=== PATIENT | female | born 1960 | race Caucasian/White ===

== ENCOUNTER 2024-12-05 09:45 | Outpatient (CLI) | payer MEDICARE, SELFPAY ==
--- OUTSIDE RECORDS SUMMARY | 2024-12-05 11:01 | XMS_ITS | Data Portability ---
Author Organization [place] [facility], Main Office Address [address] [place] [address] Assessment Encounter Date Assessment Date Assessment LastModified by Organization Details LastModified Time 10/28/2022 10/28/2022 Patient presents hip pain right. Part of the pain is trochanteric however think a lot of it is in the groin. Her x-rays appear to show potentially avascular necrosis on the lateral view she seems to have some collapse of the femoral head. I think we need to get an MRI scan to evaluate this. She clearly has trochanteric bursitis as well. I injected this with 20 mg Kenalog 4 cc 1% lidocaine. For prescription drug management will try prednisone taper this was done with for pain and inflammation. I will see her back after the MRI is done and reassess if she has any changes or problems in the interim she will call discussed. [email or web address] Not available 10/28/2022 11:22:25 11/02/2022 11/02/2022 Patient returns hip pain right. She returns with an MRI scan basically shows degenerative changes is not showing avascular necrosis. I reviewed the pictures and report with the patient and detail at this point I do not think hip replacement is in need she has gotten some relief from the injection as well as the as steroid pills recommend she continue with the conservative treatment. If the pain recurs she can take another course prednisone for prescription drug I will see her back on an as-needed basis. Not available 11/02/2022 14:07:25 Plan of Treatment Reminders Order Date Submit Date Provider Last Modified By Organization Details Last Modified Time Details Appointments None recorded. Lab None recorded. Referral None recorded. Procedures injection/a spiration joint/bursa (PROC) 2022 023 [email or web address] Not available 11:12:58 Surgeries None recorded. Imaging MRI, hip, w/o contrast [address] [facility], [address], [place], [address], 3 10:27:41 Medication Orders bupivacaine HCl 0.5 % (5 mg/mL) injection solution [address] [facility][id number], [facility], [id number], 3 11:19:15 Kenalog 10 mg/mL suspension for injection [address] [facility] #[id number], [facility] [address], [id number], 3 11:19:15 prednisone 10 mg tablets in a dose pack [address] [facility] #[id number], [facility] [address], [id number], 3 11:19:15 Patient TargetsNo targets recorded. Patient InstructionsNo instructions recorded. Reason for Referral None Reported. Results Created Date Observation Date Name Description Value Unit Range Abnormal Flag Note LastModifiedBy Organization Detail LastModifiedTime 10/29/1908/19/2022 XR, hip + pelvi s, unila teral , 2 or 3 view No observ ation record ed. [email or web address] Not Available 2022 10:27:52 10/29/19 MRI hip RT wo [facility] [address] [place] [address] [phone] Patien t Name: CARYN FIGUEREDO ion #: [id number] Sex: F : 1959 5 Locati on: IND Attend ing Physic kiera: Josefina rodriguez Physic kiera: LEON JOEL Exam Date: 10/29/19 10:19 AM Exam Name: MRI HIP RT WO Admitt ing Diagno sis(es ): RADIOL OGY REPORT - FINAL EXAM: MRI HIP RT WO HISTOR Y: pain' 62-yea r-old female with right hip pain for months , no known injury . COMPAR VALARIE: Lesa fan dated 2021. TECHNI QUE: Multip lanar multis equenc e noncon trast MR images of the right hip were perfor med. FINDIN GS: No eviden ce of fractu re or bone marrow edema about the hips or visual ized pelvis . No eviden ce of labral tear. There are small right hip margin al osteop hytes and anteri or acetab ular subcor tical cystic change s. No signif icant degene rative change s of the left hip. No eviden ce of femora l head AVN. There are trace bilate ral hip effusi ons, likely physio logic. Page 1 of 2 [facility] Patien t Name: CARYN FIGUEREDO Access ion #: [id number] Sex: F : 1959 5 Exam Date: 10/29/19 10:19 AM Exam Name: MRI HIP RT WO Admitt ing Diagno sis(es ): There is fluid signal adjace nt to the bilate ral greate r trocha nters. There is atroph y of the bilate ral gluteu s minimu s muscle s. IMPRES BHARGAV: 1. No fractu re, bone marrow edema, or AVN identi fied about either hip. 2. Mild to modera te right hip osteoa rthrit is. No signif icant left hip osteoa rthrit is. 3. Mild bilate ral trocha nteric bursit is. 4. Bilate ral gluteu s minimu s muscul ar atroph y. Create d and electr onical ly signed by: Brien maher MD Signed Date: 10/29/19 12:36 PM (CT) Dictat ed by: Brien maher MD (CT) (CT) Page 2 of [address] (Imaging) [address] [place], [place] [address], [place], [address], 10/28/2022 14:52:09 10/30/19 23 10/28/2022 MRI, hip, w/o contr ast No observ ation record ed. [email or web address] [facility] [address], [place], [address], 10/29/2022 10:27:41 11/10/19 23 10/28/2022 MRI, hip, w/o contr ast No observ ation record ed. [email or web address] [facility] [address], [place], [address], 11/09/2022 09:44:41 Result Notes None recorded. Problems Name Problem SNOMED Code Status Onset Date Resolution Date Notes Provider Name and Address Organization Details Recorded Time Pain in right hip joint 0815574961595 02 Active 2022 FREEMAN Gramajo null, [employer] 3 10:52:59 Trochanteri c bursitis of right hip 6602251281221 00 Active 2022 Leon Ag MD [address] [facility] [address], [address], [employer] 3 14:07:33 Osteoarthri tis of right hip joint 4246067269880 07 Active 2022 Leon Ag MD [address] [facility] [address] [address], [place], [address], [employer] 3 14:07:38 Problem Notes None recorded. Procedures Surgical History Date Name Laterality Status Provider Name and Address Organization Details Recorded Time 3 Ortho - Cortisone Injection completed Leon Ag MD [address] [place] [address], [place], [address], [employer] 10/28/2022 11:20:13 1 procedure on appendix completed FREEMAN Gramajo [employer] 10/28/2022 10:51:37 9 total knee replacement completed Iona Aggarwal, ATC L [place] [facility] [employer] 10/28/2022 10:51:00 6 total knee replacement completed Iona Aggarwal, ATC L [place] [facility] 10/28/2022 10:50:49 Imaging Results Imaging Date Name Status LastModified by Organiz ation Details LastModified Time 08/19/2022 XR, hip + pelvis, unilateral, 2 or 3 view completed [email or web address] Information not available 10/28/2022 10:27:52 10/28/2022 MRI hip RT wo completed [address] (Imaging) [address] [place], [address], 10/28/2022 14:52:09 10/28/2022 MRI, hip, w/o contrast completed [email or web address] [facility] [address], [place], [address], 10/29/2022 10:27:41 10/28/2022 MRI, hip, w/o contrast completed [email or web address] [facility] [address], [place], [address], 11/09/2022 09:44:41 Procedure Notes None recorded. Medical Equipment None Reported. Allergies Allergen ID Allergen Name Allergen Category Reaction Reaction Severity Criticality Documentation Date Start Date Code Code System Note Provider Name and Address Organization Details Recorded Time Keflex medicatio n Not available Not available Not available 10/28/2022 7 RxNorm Iona Aggarwal , ATC L null, [place] [facility] [employer] 10:48:59 95779 Product containin g penicilli n (product) medicatio n Not available Not available Not available 10/28/2022 18826 8001 SNOMED Iona Aggarwal , ATC L null, [place] [facility] [employer] 10:49:34 Medications Name Sig Start Date Stop Date Status Note LastModified by Organization Details LastModified Time prednisone 10 mg tablet active Not Available Not Available Not Available clindamycin HCl 300 mg capsule TAKE 2 CAPSULE BY MOUTH 1 HOUR BEFORE APPOINTMENT active Not Available Not Available Not Available bupivacaine HCl 0.5 % (5 mg/mL) injection solution Take 20 mg by injection route. 2022 active Not Available Not Available Not Avai lable prednisone 20 mg tablet TAKE 2 TABLETS BY MOUTH EVERY DAY FOR 5 DAYS THEN TAKE 1 TABLET BY MOUTH EVERY DAY FOR 3 DAYS active Not Available Not Available No t Available torsemide 10 mg tablet TAKE 1 TABLET BY MOUTH EVERY DAY NEEDED active Not Available Not Available No t Available valacyclovir 500 mg tablet active Not Available Not Available Not Available prednisone 10 mg tablets in a dose pack Take 1 tab by mouth, 3 times a day for 3 daysTake 1 tab by mouth 2 times a day for 2 daysTake 1 tab by mouth once a day for 1 day 2022 active Not Available Not Available Not Avai lable potassium chloride ER 20 mEq tablet,exten ded release(part /cryst) TAKE 1 TABLET BY MOUTH EVERY DAY NEEDED active Not Available Not Available No t Available Kenalog 10 mg/mL suspension for injection Take 20 mg by injection route. 2022 active [facility]: 0003- 0494- 20 Not Available Not Available Not Available omeprazole 20 mg capsule,mikel yed release TAKE 1 CAPSULE BY MOUTH DAILY BEFORE AND BREAKFAST active Not Available Not Available No t Available ibuprofen 600 mg tablet TAKE 1 TABLET BY MOUTH EVERY 6 HOURS NEEDED FOR PAIN active Not Available Not Available No t Available Multaq 400 mg tablet TAKE 1 TABLET BY MOUTH TWICE DAILY WITH THE MORNING AND EVENING MEAL active Not Available Not Available No t Available Eliquis 5 mg tablet TAKE 1 TABLET BY MOUTH TWICE DAILY active Not Available Not Available No t Available Eliquis DVT-PE Treatment 30-Day Starter 5 mg (74 tablets) in dose pack active Not Available Not Available Not Available Vitals Date Recorded Body height Body mass index (BMI) Body weight Provider Name and Address Organization Details Last Updated DateTime 10/28/2022 167.64 cm 37.1 kg/m2 156033.25 g Iona Aggarwal, ATC L [place] [facility] 10/28/2022 10:48:41 Date Recorded Body height Body mass index (BMI) Body weight Provider Name and Address Organization Details Last Updated DateTime 11/02/2022 167.64 cm 37.1 kg/m2 447008.25 g Soraida RAFA Esquivel [facility] [employer] [facility] 11/02/2022 13:57:16 Social History Question Answer Notes LastModified by Organizat ion Details LastModified Time Tobacco Smoking Status Never Smoker Iona Izaguirrephan, ATC L null, [facility] [employer] [facility] 10/28/2022 10:50:29 What Is Your Level Of Alcohol Consumption? None [email or web address] Information not available 10/28/2022 Sex: Unknown Functional Status None recorded. Mental Status None recorded. Family History Relationship Description Onset Age of this Age Resolved Age Notes LastModified by Organization Details LastModified Time Unspecified Relation Hypertensive disorder [email or web address] Not available 09/2022 10:50:05 Unspecified Relation Heart disease [email or web address] Not available 09/2022 10:50:14 Medical History Condition Response HEART DISEASE/HEART PROBLEMS Y CANCER: SPECIFY Y USE OF BLOOD THINNERS Y BLOOD CLOTS Y Gynecological HistoryNo gynecological history recorded. Obstetrics History GPAL:G 0 P 0 0 0 0 Past Encounters Encounter ID Performer Location Encounter Start Date Encounter Closed Date Diagnosis/Indication Diagnosis SNOMED-CT Code Diagnosis ICD10 Code Diagnosis Note [id number] Leon Ag MD [facility] [place] [address] [place] [address] 10/28/2022 10:25:36 10/28/2022 11:50:01 Pain in right hip joint 2533768321 04388 M25.551 [id number] Leon Ag MD [facility] [place] [address] [place] [address] 11/02/2022 13:50:21 11/02/2022 15:41:05 Pain in right hip joint 1777832599 79963 M25.551 Trochanter ic bursitis of right hip 3230841526 54805 M70.61 Osteoarthr itis of right hip joint 7440281395 51509 M16.11 Health Concerns Section Related Observation LastModified by Organization Detai ls LastModified Time None Recorded Concern Status LastModified by Organization Details LastModified Time None Recorded Advance Directives Directive None Recorded Payers Encounter Date Sequence Insurance Name Policy Number Policy Hart Covered Member ID Hart Member ID Guarantor Name 10/28/2022 1 [facility] (MEDICARE REPLACEMENT/A DVANTAGE - PPO) [id number] Caryn Paulino Berhane [id number] Caryn Last 11/02/2022 1 [facility] (MEDICARE REPLACEMENT/A DVANTAGE - PPO) [id number] Caryn Paulino Berhane [id number] Caryn Last Notes Date Note Type Note Provider Name and Address Organization Details Recorded Time 10/28/2022 text/html Patient presents hip pain right. She is tender over the trochanteric region but even more in the groin worse with activity somewhat relieved by rest it has been going on for several months and seems to be getting worse. She has a hard time even ambulating at this point. Leon Ag MD [address], [place], [address], [employer] 10/28/2022 11:23:39 11/02/2022 text/html Patient presents hip pain right. She is tender over the trochanteric region but even more in the groin worse with activity somewhat relieved by rest it has been going on for several months and seems to be getting worse. She has a hard time even ambulating at this point. Leon Ag MD [address], [place], [address], [employer] 11/02/2022 14:07:57 OBGyn Episode No OBEpisode recorded.
--- OUTSIDE RECORDS SUMMARY | 2024-12-05 11:01 | XMS_ITS | Encounter Summary ---
Author Organization [facility] Address [address] [facility] [place] [address] Care Team Providers Care Molded Goods Controls Operator Name Role Phone Umer Ag MD Unavailable Serg Herb Primary Care Provider [phone] Rebecca Greenwood DO Primary Care Provi gabriella Pollo Ivy MD Primary Care Provider [phone] Deborah Ag PA-C Primary Care Provider [phone] Supriya Figueroa MD Unavailable Vicki Gilbert DO Unavailable Ludivina Weathers CARGO TANK MECHANIC-NEWSCAST PRODUCER Unavailable [phone] Ludivina Weathers CARGO TANK MECHANIC-NEWSCAST PRODUCER Unavailable Sarah Becerra CARGO TANK MECHANIC-NEWSCAST PRODUCER Unavailable [phone] Uzma Elliott MD Unavailable [phone] Pollo Ivy MD Primary Care Provider [phone] Juan A Marino MD Unavailable [phone] Pollo vIy MD Unavailable [phone] Daiana Emerson RN Unavailable [phone] Pollo Ivy MD Unavailable [phone] Daiana Emerson RN Unavailable [phone] Justo Silveira MD Unavailable Daryl Fernandez BUILDING PERFORMANCE SPECIALIST Unavailable Ludivina Weathers CARGO TANK MECHANIC-NEWSCAST PRODUCER Unavailable [phone] Ludivina Weathers CARGO TANK MECHANIC-NEWSCAST PRODUCER Unavailable [phone] Pollo Ivy MD Unavailable [phone] Pollo Ivy MD Unavailable [phone] Encounter Details Date Type Department Care Team (Late st Contact Info) Description 06/15/2010 [facility] Ricco Portillo MD [address] [place] [address] Social History Tobacco Use Types Packs/Day Years Used Date Smoking Tobacco: Never Alcohol Use Standard Drinks/Week Comments No 0 (1 standard drink = 0.6 oz pur e alcohol) Sex and Gender Information Value Date Recorded Sex Assigned at Female 09/30/2022 9:17 AM CLAM SHUCKER Gender Identity Female 07/11/2019 4:06 PM CLAM SHUCKER Sexual Orientation Not on file documented as of this encounter Plan of Treatment Upcoming Encounters Date Type Department Care Team (Late Contact Info) Description 12/31/2024 8:45 AM CDT Office Visit [facility] Health Weight Management Services [id number] [place] [address] [address] [place] [address] Ludivina Weathers, CARGO TANK MECHANIC-NEWSCAST PRODUCER [id number] [place] [address] [address] [place], [place] [id number] 01/31/2025 10:30 AM CDT Office Visit [facility] Health Medical Group - Endocrinology [address] [place] [address] [address] [place] [address] Chandra Russ MD 1 [facility] [address] [place] [address] 04/08/2025 10:00 AM CDT Appointment [facility] Health Imaging Services - CT Scan [address] [place] [address] 04/22/2025 10:40 AM CDT Documentation [facility] Health Cancer Care [address] [place] [address] [address] [place] [address] 04/22/2025 11:00 AM CDT Office Visit [facility] Health Cancer Care [address] [place] [address] Uzma Elliott MD [address] [place] [address] [address] [place] [address] 06/17/2025 10:10 AM CDT Office Visit [facility] Health Heart & Vascular Care [address] [facility], [address] [place] [address] Supriya Figueroa MD [address] [facility] [address] [place] [address] documented as of this encounter Visit Diagnoses Not on filedocumented in this encounter Care Teams Molded Goods Controls Operator Relationship Specialty Start Date End Date Herb Ulrich DO [address] [place] [address] PCP - General Family Medicine 02/07/12 02/07/12 Rebecca Greenwood DO [address] [address] PCP - General 02/08/12 02/15/12 Pollo Ivy MD [address] [place] [address] PCP - General Family Medicine 06/21/16 07/15/16 Deborah Ag PA-C [address] [place] [address] [address] [place] [address] PCP - General Internal Medicine 07/16/16 08/05/16 Ludivina Weathers APRN-NEWSCAST PRODUCER [address] [place] [address] PCP - Attributed-Exclusive Choice 02/26/19 08/28/19 Ludivina Weathers APRN-NEWSCAST PRODUCER [address] [place] [address] PCP - Attributed-Ricardo [employer] 03/29/20 07/28/20 Pollo Ivy MD [address] [facility] [address] [place] [address] PCP - General Family Medicine 10/03/20 Pollo Ivy MD [address] [facility] [facility] [address] [place] [address] PCP - Attributed-Ricardo Commercial 07/29/20 10/15/21 Pollo Ivy MD [address] [facility] [address] [place] [address] PCP - Attributed-[facility] MA 09/29/21 Ludivina Weathers APRN-NEWSCAST PRODUCER [address] [place], [place] [address] PCP - Attributed-Exclusive Choice 04/20/18 07/18/18 Luidvina Weathers APRN-NEWSCAST PRODUCER [address] [place] [address] PCP - Attributed-Exclusive Choice 10/05/18 01/04/19 [place] [address] [place] [address] [address] [place] [address] PCP - Attributed-Exclusive Choice 07/19/18 10/04/18 Plolo Ivy MD [address] [place] [address] PCP - Attributed-Exclusive Choice 01/05/19 02/25/19 Umer Ag MD Orthopedic Surgery 11/13/10 08/02/22 Supriya Figueroa MD [address] [place] [address] Cardiovascular Disease 08/06/16 Vicki Gilbert DO [address] [place] [address] [address] [place] [address] Obstetrics and Gynecology 06/09/18 Sarah Becerra APRN-NEWSCAST PRODUCER [address] [place] [address] Nurse Practitioner Nurse Practitioner Adult Health 09/24/20 08/02/22 Uzma Elliott MD [address] [place] [address] Hematology and Oncology 09/24/20 Juan A Marino MD [address] [facility] [address] [place] [address] Physician General Surgery 10/03/20 08/02/22 [place] [address] [place] [address] 200 [place] [address] Chart PickerLabel Printer 04/24/21 12/11/23 Daiana Emerson, RN [address] [facility] [address] [place] [address] Care Management 04/21/21 11/29/23 [place] [address] [address] General Surgery 08/05/23 Daryl Fernandez MSW Outpatient Automobile Mechanic Helper Care Management 01/13/24 01/13/24 documented as of this encounter
--- OUTSIDE RECORDS SUMMARY | 2024-12-05 11:01 | XMS_ITS | Encounter Summary ---
Author Organization [facility] Address [address] [address] Care Team Providers Care Photogrammetric Engineer Name Role Phone Umer Ag MD Unavailable Serg Herb Primary Care Provider [phone] Rebecca Greenwood DO Primary Care Provi gabriella Pollo Ivy MD Primary Care Provider [phone] Deborah Ag PA-C Primary Care Provider [phone] Supriya Figueroa MD Unavailable Vicki Gilbert DO Unavailable [phone] Ludivina Weathers WATER SAFETY INSTRUCTOR-OFFICE WORKFORCE PLANNER Unavailable [phone] Ludivina Weathers WATER SAFETY INSTRUCTOR-OFFICE WORKFORCE PLANNER Unavailable Sarah Becerra WATER SAFETY INSTRUCTOR-OFFICE WORKFORCE PLANNER Unavailable [phone] Uzma Elliott MD Unavailable [phone] Pollo Ivy MD Primary Care Provider [phone] Juan A Marino MD Unavailable [phone] Pollo Ivy MD Unavailable [phone] Daiana Emerson RN Unavailable [phone] Pollo Ivy MD Unavailable [phone] Daiana Emerson RN Unavailable [phone] Justo Silveira MD Unavailable [phone] Daryl Fernandez TRADE ANALYST Unavailable Ludivina Weathers WATER SAFETY INSTRUCTOR-OFFICE WORKFORCE PLANNER Unavailable [phone] Ludivina Weathers WATER SAFETY INSTRUCTOR-OFFICE WORKFORCE PLANNER Unavailable [phone] Pollo Ivy MD Unavailable Pollo Ivy MD Unavailable [phone] Encounter Details Date Type Department Care Team (Late Contact Info) Description 04/01/2011 [facility]PT Ludivina Weathers APRN-OFFICE WORKFORCE PLANNER [id number] [facility] [address] [place] [address] Social History Tobacco Use Types Packs/Day Years Used Date Smoking Tobacco: Never Alcohol Use Standard Drinks/Week Comments No 0 (1 standard drink = 0.6 oz pur e alcohol) Sex and Gender Information Value Date Recorded Sex Assigned at Female 09/30/2022 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 Gender Identity Female 07/11/2019 4:06 PM 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 Sexual Orientation Not on file documented as of this encounter Plan of Treatment Upcoming Encounters Date Type Department Care Team (Late Contact Info) Description 12/31/2024 8:45 AM CDT Office Visit [facility] Weight Management Services [address] [facility] [address] [place] [address] Ludivina Weathers APRN-OFFICE WORKFORCE PLANNER [address] [facility] [address] [place] [address] 01/31/2025 10:30 AM CDT Office Visit [facility] - Endocrinology [address] [place] [address] [address] [place] [address] Chnadra Russ MD [address] [place] [address] [address] [place] [address] 04/08/2025 10:00 AM CDT Appointment [facility] Health Imaging Services - CT Scan [address] [place] [address] 04/22/2025 10:40 AM CDT Documentation [facility] Cancer [facility] [address] [place] [address] 04/22/2025 11:00 AM CDT Office Visit [facility] Cancer [facility] [address] [place] [address] Uzma Elliott MD [address] [place] [address] [address] [place] [address] 06/17/2025 10:10 AM CDT Office Visit [facility] Heart & Vascular Care [address] [facility], [address] [place] [id number] Supriya Figueroa MD [address] [facility] [address] [place] [address] documented as of this encounter Visit Diagnoses Not on filedocumented in this encounter Care Teams Photogrammetric Engineer Relationship Specialty Start Date End Date Herb Ulrich DO [address] [place] [address] PCP - General Family Medicine 02/07/12 02/07/12 Rebecca Greenwood DO [address] [place] [address] PCP - General 02/08/12 02/15/12 Pollo Ivy MD [address] [place] [address] [address] [place] [address] PCP - General Family Medicine 06/21/16 07/15/16 Deborah Ag PA-C [address] [place] [address] [address] [place] [address] PCP - General Internal Medicine 07/16/16 08/05/16 Ludivina Weathers APRN-OFFICE WORKFORCE PLANNER [address] [place] [address] PCP - Attributed-Exclusive Choice 02/26/19 08/28/19 Ludivina Weathers APRN-OFFICE WORKFORCE PLANNER [address] [place] [address] PCP - Attributed-[employer] 03/29/20 07/28/20 Pollo Ivy MD [address] [facility] [address] [place] [address] PCP - General Family Medicine 10/03/20 Pollo Ivy MD [address] [facility] [address] [place] [address] PCP - Attributed-[employer] 07/29/20 10/15/21 Pollo Ivy MD [address] [facility] [address] [place] [address] PCP - Attributed-[facility] 09/29/21 Ludivina Weathers APRN-OFFICE WORKFORCE PLANNER [address] [place], [place] [id number] PCP - Attributed-Exclusive Choice 04/20/18 07/18/18 Ludivina Weathers APRN-OFFICE WORKFORCE PLANNER [address] [place] [address] PCP - Attributed-Exclusive Choice 10/05/18 01/04/19 Pollo Ivy MD [address] [place] [address] [address] [place] [address] PCP - Attributed-Exclusive Choice 07/19/18 10/04/18 Pollo Ivy MD [address] [place] [address] PCP - Attributed-Exclusive Choice 01/05/19 02/25/19 Umer Ag MD Orthopedic Surgery 11/13/10 08/02/22 Supriya Figueroa MD [address] [place] [address] Cardiovascular Disease 08/06/16 Vicki Gilbert DO [address] [place] [address] [address] [place] [address] Obstetrics and Gynecology 06/09/18 Sarah Becerra APRN-OFFICE WORKFORCE PLANNER [address] [place] [address] Nurse Practitioner Nurse Practitioner Adult Health 09/24/20 08/02/22 Uzma Elliott MD [address] [place] [address] Hematology and Oncology 09/24/20 Juan A Marino MD [address] [facility] [address] [place] [address] Physician General Surgery 10/03/20 08/02/22 [place] [address] [place] [address] [address] [place] [address] Poultry Farm SupervisorScreener Perfumer 04/24/21 12/11/23 Daiana Emerson, RN [address] [facility] [address] [place] [address] Care Management 04/21/21 11/29/23 [place] [address] [address] General Surgery 08/05/23 Daryl Fernandez MSW Outpatient Global Project Manager Care Management 01/13/24 01/13/24 documented as of this encounter
--- OUTSIDE RECORDS SUMMARY | 2024-12-05 11:01 | XMS_ITS | Clinical Summary ---
Author Organization [facility] Address [address] [place] [address] Care Team Providers Care Regional Operations Manager Name Role Phone Supriya Figueroa MD Unavailable Vicki Gilbert DO Unavailable [phone] Uzma Elliott MD Unavailable [phone] Pollo Ivy MD Primary Care Provider [phone] Pollo Ivy MD Unavailable [phone] Justo Silveira MD Unavailable [phone] Source Comments [facility],non-owned Affiliates and Associated Physician Practices is amultiple site organization consisting of ambulatory clinics and hospital sitesin [place], [place], [place] and [place]. This disclosure is being madepursuant to the Care Everywhere program and may not contain all information available regarding this patient. Last updated 18.[facility] Allergies Active Allergy Reactions Criticality Noted Date Comments Keflex Rash 10/25/2008 Penicillins Urticaria Medium 10/25/2008 Medications * Be aware that medications may not be up to date on this document. Alwaysverify current medications with the patient. Medication Sig Dispensed Refills Start Date End Date Status Cranberry 125 MG Take 250 mg by mouth once daily Active acetaminophen-caffei ne 500-65 MG tablet Take 2 (two) tablets by mouth every 6 hours as needed for Headache Active loperamide (Imodium) 2 MG capsule Take 1 (one) capsule by mouth 4 times daily as needed for Diarrhea Active acetaminophen (Tylenol) 160 MG/5ML solution Take by mouth every 4 hours as needed for Fever or Pain Active azelastine (Astelin) 0.1 % nasal spray USE 2 SPRAYS IN EACH NOSTRIL EVERY NIGHT 1 HOUR BEFORE BEDTIME 01/20/2024 Active ondansetron, disintegrating, (Zofran ODT) 4 MG tablet DISSOLVE 1 TABLET ON THE TONGUE EVERY 6 HOURS NEEDED FOR NAUSEA AND VOMITING 30 tablet 01/11/2024 Active vitamin D3 (D 1000) (25 MCG) 1000 UNIT capsule Take 2,500 Units by mouth Active phytonadione (Mephyton) 5 MG tablet Take 1 (one) tablet by mouth once Active apixaban (Eliquis) 5 MG tablet Take 1 (one) tablet by mouth 2 times daily 180 tablet 3 10/08/2024 Active dronedarone (Multaq) 400 MG tablet Take 1 (one) tablet by mouth 2 times daily after meals 60 tablet 3 10/08/2024 Active potassium chloride ER (Klor-Con M) 20 MEQ tablet Take 1 (one) tablet by mouth once daily as needed 90 tablet 3 10/08/2024 Active torsemide (Demadex) 10 MG tablet Take 1 (one) tablet by mouth once daily 90 tablet 2 10/08/2024 Active omeprazole (PriLOSEC) 20 MG capsule TAKE 1 CAPSULE BY MOUTH DAILY 90 capsule 2 11/01/2024 Active Active Problems Problem Noted Date Diagnosed Date S/P gastric bypass 01/11/2024 Trochanteric bursitis of right hip 11/01/2022 07/05/2023 Osteoarthritis of right hip 11/01/2022 11/0 02/2023 Pain of right hip joint 10/27/2022 07/05/20 23 History of DVT in adulthood 08/16/2022 Right calf pain 08/16/2022 PAF (paroxysmal atrial fibrillation) 05/11/2022 Overview (05/11/2022): 03/18/22 Supriya Figueroa MD Cardiovascular Disease ov Low grade mucinous neoplasm of appendix 09/24/19 21 Mass of colon 09/08/2020 S/P surgical manipulation of knee joint 04/01/20 19 group home (current) use of anticoagulants 2018 Status post surgical manipulation of knee joint 02/06/2019 Cardiac arrhythmia 05/07/2014 H/O laparoscopic adjustable gastric banding 07/29 PVC (premature ventricular contraction) 02/08/20 12 Status following gastric banding surgery for shiv ght loss 07/09/2011 Acute sinusitis 02/12/2011 S/P LAP-BAND surgery 10/15/2010 Morbid obesity 06/08/2010 Pain in joint, multiple sites 06/08/2010 OA (osteoarthritis) of knee 03/13/2010 Overview (11/13/2010): S/P steroid injections; Euflexa Followed by Umer Ag/Orthopedic [facility] 11/09/2010 Vitamin D deficiency 03/13/2010 Ovarian failure 03/13/2010 Essential hypertension, benign 03/13/2010 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 Overview (03/13/2010): Mother, sister Obesity 03/21/2009 Overview (03/13/2010): Planning bariatric surgery FH: hypertension 03/21/2009 Overview (03/21/2009): Mother,father White coat syndrome with hypertension Weight gain Resolved Problems Problem Noted Date Diagnosed Date Resolved Date Preop testing 06/08/2010 08/07/2012 Dyspnea on exertion 06/08/2010 08/07/20 12 Hyperlipidemia with target LDL less than 130 0 08/05/2023 Overview (07/06/2015): Screening for cervical cancer 03/13/2010 08/07/2012 Overview (03/13/2010): Followed by Antelmo Barnes/Obstetrics and Gynecology Screening for colon cancer 03/13/2010 1 10/08/2011 Routine general medical exam ination at a health care facility 03/13/2010 08/07/2012 Overview (03/13/2010): PCPRebecca Encounters Date Type Department Care Team Description 11/01/2024 Refill [facility] Weight Management Services [id number] [place] [address], [address] [place] [address] Daiana Tomas, RADIO EQUIPMENT INSTALLER-CENTRAL OFFICE MECHANIC Refill Request 10/29/2024 8:25 AM BOAT REPAIRER - 10/29/2024 11:59 PM BOAT REPAIRER Hospital Encounter [facility] Health Breast Care [address] [place] [address] Uzma Elliott MD Discharge Disposition: Home or Self Care 10/29/2024 Orders Only [facility] Weight Management Services 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 Orders Only [facility] CC [facility] MP [address] [place] [address], [facility] [address] [place] [address] Uzma Elliott MD Mass of colon ; Low grade mucinous neoplasm of appendix; Ovarian failure 10/08/2024 1:40 PM BOAT REPAIRER Office Visit [facility] Heart & Vascular Care [address], [address] [place] [phone] Supirya Figueroa MD SOB (shortness of breath) (Primary Dx) from Last 3 Months Immunizations Name Administration Dates Next Due [employer] primary monoval ent 12+ yr 0.3mL Purple cap 07/20/2021,11/26/2020,11/05/2020 INFLUENZA VACCINE 06/01/2018,05/13/2009 INFLUENZA VACCINE, CELL CULT URE, QUADR. (FLUCELVAX QUADRIVALENT; 6MO+) (CCIIV4) 05/15/2022,05/30/2020 INFLUENZA VACCINE, QUADR. (F LUZONE; FLULAVAL; FLUARIX; AFLURIA QUADRIVALENT; 6MO+), 0.5 ML (IIV4) 05/11/2023,07/20/2021,06/21/2019, 016 Family History Medical History Relation Name Comments CAD (Coronary Artery Disease) Father Hypertension Father Anemia Mother Arthritis - Rheumatoid Mother Hypercholesterolemia Mother Hypertension Mother Other Mother idiopathic hpok alemia Other Sister idiopathic hpok alemia Cancer - Breast Neg Hx Cancer - Colon Neg Hx Cancer - Ovarian Neg Hx Colon polyps Neg Hx Relation Name Status Comments Father Mother Sister Social History Tobacco Use Types Packs/Day Years Used Date Smoking Tobacco: Never Passive Smoke Exposure: Never Smokeless Tobacco: Never Tobacco Cessation:Counseling Given: Not Answered Alcohol Use Standard Drinks/Week Comments No 0 (1 standard drink = 0.6 oz pur e alcohol) AUDIT-C Answer Date Recorded Q1: How often do you have a drink containing alcohol? Monthly or less 01/11/2024 Q2: How many drinks containi ng alcohol do you have on a typical day when you are drinking? Patient does not drink Q3: How often do you have si x or more drinks on one occasion? Never 01/11/2024 Overall Financial Resource Strain (CARDIA) Answe r Date Recorded How hard is it for you to pa y for the very basics like food, housing, medical care, and heating? Not hard at all 01/11/2024 PHQ-2 Answer Date Recorded Patient Health Questionnaire-2 Score 0 10/22/2024 [facility] [place] - Occupational Stress Questionnaire Answer Date Recorded Do you feel stress - tense, restless, nervous, or anxious, or unable to sleep at night because your mind is troubled all the time - these days? Not at all 01/11/2024 Hunger Vital Sign Answer Date Recorded Within the past 12 months, y ou worried that your food would run out before you got the money to buy more. Never true 01/11/20 24 Within the past 12 months, t he food you bought just didn't last and you didn't have money to get more. Never true 01/11/2024 PRAPARE - Transportation Answer Date Re corded In the past 12 months, has l ack of transportation kept you from medical appointments or from getting medications? No 12/27 In the past 12 months, has l ack of transportation kept you from meetings, work, or from getting things needed for daily living? No 01/11/2024 Housing Stability Vital Sign Answer Prosper e Recorded In the last 12 months, was t here a time when you were not able to pay the mortgage or rent on time? No 01/11/2024 In the last 12 months, how many places have you lived? 1 01/11/2024 In the last 12 months, was t here a time when you did not have a steady place to sleep or slept in a group home (including now)? No 01/11/2024 Sex and Gender Information Value Date Recorded Sex Assigned at Female 09/30/2022 9:17 AM BOAT REPAIRER Gender Identity Female 07/11/2019 4:06 PM BOAT REPAIRER Sexual Orientation Not on file Last Filed Vital Signs Vital Sign Reading Time Taken Comments Blood Pressure 128/76 10/22/2024 11:52 AM BOAT REPAIRER Pulse 63 10/22/2024 11:52 AM BOAT REPAIRER Temperature 36.1 C (97 F) 10/22/2024 11:52 AM BOAT REPAIRER Respiratory Rate 16 10/22/2024 11:52 AM BOAT REPAIRER Oxygen Saturation 100% 10/22/2024 11:52 AM BOAT REPAIRER Inhaled Oxygen Concentration - - Weight 98.9 kg (218 lb) 10/29/2024 8:55 AM BOAT REPAIRER Height 160 cm (5' 2.99 ) 10/29/2024 8:55 AM BOAT REPAIRER Body Mass Index 38.63 10/29/2024 8:55 AM BOAT REPAIRER Plan of Treatment Upcoming Encounters Date Type Department Care Team (Late st Contact Info) Description 12/31/2024 8:45 AM CDT Office Visit [facility] Weight Management Services [address] [place] [address] Ludivina Weathers, RADIO EQUIPMENT INSTALLER-CENTRAL OFFICE MECHANIC [address] [facility] [address] [place] [address] 01/31/2025 10:30 AM CDT Office Visit [facility] Health Medical Group - Endocrinology [address] [facility] [place] [address] Chandra Russ MD [address] [facility] [address] [place] [address] 04/08/2025 10:00 AM CDT Appointment [facility] Health Imaging Services - [place] Scan [address] [place] [address] 04/22/2025 10:40 AM CDT Documentation [facility] Health Cancer Care [address] [place] [address] [address] [place] [address] 04/22/2025 11:00 AM CDT Office Visit [facility] Health Cancer Care [address] [place] [address] [address] [place] [address] Uzma Elliott MD [address] [place] [address] [address] [place] [address] 06/17/2025 10:10 AM CDT Office Visit [facility] Health Heart & Vascular Care [address], [address] [place] [address] Supriya Figueroa MD [address] [facility] [address] [place] [address] Health Maintenance Due Date Last Done Comments COLOGUARD (AGES 45-75) - COLON CA SCREENING 1960 CT COLONOGRAPHY - COLON CA SCREENING 1960 FIT - COLON CA SCREENING 1960 FLEX SIG - COLON CA SCREENING 1960 DTAP/TDAP/TD VACCINES (1 - Tdap) 01/17/1979 PNEUMOCOCCAL VACCINE 50+ (1 of 2 - PCV) 01/17/1979 ZOSTER VACCINE (1 of 2) 01/17/1979 Respiratory Syncytial Virus (RSV) Vaccine Pt: or over 60 yrs (1 - Risk 60-74 years 1-dose series) 2020 BONE DENSITY TESTING 10/06/2023 10/06/2021, 07/28/20 17 MEDICARE AWV CALENDAR YEAR 2024 08/06/2024, 08/05/2023, 08/03/2022, Additional history exists PAP with HPV 03/03/2025 03/03/2020 (Done Outside Per Report) COLON MONITORING 07/13/2026 07/13/2024, , 07/09/2024, Additional history exists Colorectal Cancer Screening 07/13/2026 MAMMOGRAM 10/29/2026 10/29/2024, 09/30, 10/08/2022, Additional history exists SCREENING FOR DIABETES 10/22/2027 , 07/25/2024, 04/23/2024, Additional history exists LIPID TESTING 04/13/2029 04/13/2024, 12/0 01/2022, 07/20/2021, Additional history exists COLONOSCOPY - COLON CA SCREENING 07/13/2034 07/13/2024, 07/13/2024, 07/09/2024, Additional history exists HEPATITIS C SCREENING Completed 06/07/2017 COVID-19 VACCINE Completed 06/07/2024, 04/2023, 05/15/2022, Additional history exists INFLUENZA VACCINE Completed 06/07/2024, , 05/15/2022, Additional history exists DEPRESSION SCREENING Completed 10/22/2024, 10/24/2023, 09/17/2022, Additional history exists HEPATITIS B VACCINE Aged Out No longe r eligible based on patient's age to complete this topic HIB VACCINE Aged Out No longer eligi ble based on patient's age to complete this topic HIV SCREENING Discontinued HPV VACCINE Aged Out No longer eligi ble based on patient's age to complete this topic MENINGOCOCCAL (Group B) VACCINE SHARED DECISION-MAKING Aged Out No longer eligible based on patient's age to complete this topic MENINGOCOCCAL GROUPS A/C/Y/W VACCINE Aged Out No longer eligible based on patient's age to complete this topic Goals Goal Patient Goal Type Associated Problems Recent Progress Patient-Stated? Author Patient Stated Goal:losse 35 pounds General Yes Daiana Emerson, RN Note: Progress toward goal attainment: 0% : Ongoing / No progress Barriers to goal attainment: lack of motivation Medical Devices Implanted Type Area Medical Administrator Device Identifier Shelf Expiration Date Model / Serial / Lot Cmnt Bone Plc R+Ggnta 40gm Lf Grn Implanted:Qty: 2 on 07/16/2016 by Umer Ag MD at [facility] Right: Knee [employer] 12/27/2019 [id number] / / [id number] Ent Kit With Hemaderm Topical Hemostat Implanted:Qty: 1 on 07/16/2016 by Umer Ag MD at [facility] Right: Knee [employer] 02/23/2019 [id number] / / [id number] Tray Tib 71mm As Mx Kn Intlk Cocr 1 Pc Implanted:Qty: 1 on 07/16/2016 by Umer Ag MD at [facility] Right: Knee [employer] 06/08/2026 [id number] / / [id number] Cmpnt Fem Kn Rt Cr Cmnt Prm Vngrd Intlk Implanted:Qty: 1 on 07/16/2016 by Umer Ag MD at [facility] Right: Knee [employer] 05/06/2026 [id number] / / [id number] Cmpnt Ptlr Std 34mm 3 Pg Kn Ser A Implanted:Qty: 1 on 07/16/2016 by Umer Ag MD at [facility] Right: Knee [employer] 02/19/2021 [id number] / / [id number] Cr Tibial Bearing Implanted:Qty: 1 on 07/16/2016 by Umer Ag MD at [facility] Right: Knee [employer] 03/08/2021 [id number] / / [id number] Cmpnt Fem Kn Lt 6 Bicruciate Stab Implanted:Qty: 1 on 01/15/2019 by Joseluis Garrett MD at [facility] Left: Knee [employer] 08/04/2028 [id number] / / [id number] Cmpnt Ptlr Ovl [id number] Gns2 Uhmwpe Kn Implanted:Qty: 1 on 01/15/2019 by Joseluis Garrett MD at [facility] Left: Knee [employer] 10/23/2028 [id number] / / [id number] Journey, Nonporous, Tibial Baseplate, Size 4, Left Implanted:Qty: 1 on 01/15/2019 by Joseluis Garrett MD at [facility] Left: Knee [employer] 10/07/2028 [id number] / / [id number] Mm Journey Ii Bcs, Constrained Articular Insert, Left, Size 3-4 Implanted:Qty: 1 on 01/15/2019 by Joseluis Garrett MD at [facility] Left: Knee [employer] 10/24/2028 [id number] / / [id number] Gilberto Bone Palacos R+G Hi-Visc Implanted:Qty: 1 on 01/15/2019 by Joseluis Garrett MD at [facility] Left: Knee Herae[employer] 12/26/2021 [id number] / / [id number] Gilberto Bone Palacos R+G Hi-Visc Implanted:Qty: 1 on 01/15/2019 by Joseluis Garrett MD at [facility] Left: Knee Heraeus Kul[employer]elen[employer] 12/26/2021 [id number] / / [id number] Explanted Type Area Medical Administrator Device Identifier Shelf Expiration Date Model / Serial / Lot Vis Adpt Guide Jii Kit Lt Sz F6/T4 Explanted:Qty: 1 on 01/15/2019 at [facility] Left: Knee [employer] 06/03/2019 [id number] / / [id number] Description:Charge Procedures Procedure Name Priority Date/Time Associated Diagnosis Comments MAMMO BILAT SCREENING W ALEXANDRE Routine 10/29/2024 8:56 AM BOAT REPAIRER Visit for screening mammogram CBC W AUTO DIFFERENTIAL (CANCER CARE) Routine 10/22/2024 10:48 AM BOAT REPAIRER History of appendiceal cancer CANCER ANTIGEN (CA)125 BLOOD Routine 10/22/2024 10:48 AM BOAT REPAIRER History of appendiceal cancer CANCER ANTIGEN (CA) 19-9 Routine 10/22/2024 10:48 AM BOAT REPAIRER History of appendiceal cancer CEA BLOOD Routine 10/22/2024 10:48 AM BOAT REPAIRER History of appendiceal cancer COMPREHENSIVE METABOLIC PANEL Routine 10/22/2024 10:48 AM BOAT REPAIRER History of appendiceal cancer EKG 12-LEAD Routine 10/08/2024 SOB (shortness of breath) ENDOSCOPY, COLON, SCREENING Routine 07/09/2024 11:17 AM BOAT REPAIRER High risk for colon cancer Adenomatous polyp of colon, unspecified part of colon LIPID PROFILE Routine 04/13/2024 11:31 AM CDT Screening for lipid disorders DEXA BONE DENSITY AXIAL SKELETON Routine 10/06/2021 10:42 AM BOAT REPAIRER Osteopenia, unspecified location HEPATITIS C ANTIBODY Routine 06/07/2017 8:48 AM CDT Need for hepatitis C screening test from Last 3 Months or Most Recently Relevant to Health Maintenance Results * Mammo Bilat Screening W Alexandre (10/29/2024 8:56 AM BOAT REPAIRER) Anatomical Region Laterality Modality Breast Bilateral Mammography 10/29/2024 11:4 9 AM BOAT REPAIRER Impressions 10/29/2024 11:50 AM BOAT REPAIRER IMPRESSION: No mammographic evidence of malignancy. BI-RADS Category 1: Negative Mammogram. Recommendation: Resume routine yearly mammography schedule for women over age 40 or return sooner if clinically indicated. > Interpreting Provider: Basil Solomon MD on 10/29/2024 11:50 AM Narrative 10/29/2024 11:50 AM BOAT REPAIRER Bilateral mammography. Most recent comparison: 2023. History: Screening mammogram. Technique: Bilateral breasts. Mammography views included: CC and MLO. Images interpreted with CAD. Following current [facility] protocol, 3D mammographic tomosynthesis images were obtained and reviewed on a dedicated viewing station. FINDINGS: Breast composition: There are scattered areas of fibroglandular density. No suspicious calcifications, masses, or areas of architectural distortion. Pollo Ivy MD MAMMO ORDERABLES * CBC W AUTO DIFFERENTIAL (CANCER CARE) (10/22/2024 10:48 AM BOAT REPAIRER) WBC 4.4 4.4 - 10.7 x10E9/L 10/22/2024 11:06 AM BOAT REPAIRER [facility] Neutrophils % 46.8 44.0 - 73.0 % 10/22/2024 11:06 AM BOAT REPAIRER [facility] Lymphocytes % 41.4 20.0 - 43.0 % 10/22/2024 11:06 AM BOAT REPAIRER [facility] Monocytes % 10.0 5.0 - 13.0 % 10/22/2024 11:06 AM BOAT REPAIRER [facility] Eosinophils % 1.1 0.0 - 6.0 % 10/22/2024 11:06 AM BOAT REPAIRER [facility] Basophils % 0.7 0.0 - 2.0 % 10/22/2024 11:06 AM BOAT REPAIRER [facility] Neutrophil Absolute 2.06 2.01 - 7.14 x10E9/L 10/22/2024 11:06 AM BOAT REPAIRER [facility] Lymphocytes Absolute 1.82 1.07 - 3.94 x10E9/L 10/22/2024 11:06 AM BOAT REPAIRER [facility] Monocytes Absolute 0.44 0.26 - 1.07 x10E9/L 10/22/2024 11:06 AM BOAT REPAIRER [facility] Eosinophils Absolute 0.05 0 - 0.47 x10E9/L 10/22/2024 11:06 AM BOAT REPAIRER [facility] Basophils Absolute 0.03 0 - 0.08 x10E9/L 10/22/2024 11:06 AM BOAT REPAIRER [facility] RBC 4.07 3.80 - 5.20 x10E12/L 10/22/2024 11:06 AM BOAT REPAIRER [facility] Hemoglobin 12.6 12.0 - 15.6 gm/dL 10/22/2024 11:06 AM BOAT REPAIRER [facility] Hematocrit 38.6 35.9 - 45.5 % 10/22/2024 11:06 AM BOAT REPAIRER [facility] MCV 94.8 80.7 - 98.3 fl 10/22/2024 11:06 AM BOAT REPAIRER [facility] MCH 31.0 26.7 - 34.0 pg 10/22/2024 11:06 AM BOAT REPAIRER [facility] MCHC 32.6 30.8 - 35.9 gm/dL 10/22/2024 11:06 AM BOAT REPAIRER [facility] RDW-CV 13.8 12.1 - 14.9 % 10/22/2024 11:06 AM BOAT REPAIRER [facility] Platelet Count 233 153 - 416 x10E9/L 10/22/2024 11:06 AM BOAT REPAIRER [facility] MPV 10.5 9.4 - 12.9 fl 10/22/2024 11:06 AM BOAT REPAIRER [facility] Blood BLOOD SPECIMEN / Unknown 10/22/2024 10:48 AM BOAT REPAIRER 10/22/2024 10:48 AM BOAT REPAIRER Uzma Elliott MD LAB - HEMATOLOGY OR DERABLES Performing Organization Address City/[facility]/ZIP Co de Phone Number [facility] [address] * CANCER ANTIGEN (CA) 19-9 (10/22/2024 10:48 AM BOAT REPAIRER) CA 19-9 11 0 - 35 U/mL [facility] ACCOUNT BILL Comment: [facility] Electrochemiluminescence Immunoassay (ECLIA) Values obtained with different assay methods or kits cannot be used interchangeably. Results cannot be interpreted as absolute evidence of the presence or absence of malignant disease. Blood BLOOD SPECIMEN / Unknown 10/22/2024 10:48 AM BOAT REPAIRER 10/22/2024 Comment:Blood Release to the medical center Narrative [facility] ACCOUNT BILL - 10/23/2024 1:09 PM BOAT REPAIRER Performed at: 01 - [facility] [id number] Finisher Map And Chart: Bandar Garcia PhD, Phone: [phone] Uzma Elliott MD LAB - CHEMISTRY ORD ERABLES Performing Organization Address City/[facility]/ZIP Co de Phone Number [facility] ACCOUNT BILL [address] [place] [address] * CANCER ANTIGEN (CA)125 BLOOD (10/22/2024 10:48 AM BOAT REPAIRER) CA 125 6.9 0.0 - 38.1 U/mL [facility] ACCOUNT BILL Comment: [facility] Electrochemiluminescence Immunoassay (ECLIA) Values obtained with different assay methods or kits cannot be used interchangeably. Results cannot be interpreted as absolute evidence of the presence or absence of malignant disease. Blood BLOOD SPECIMEN / Unknown 10/22/2024 10:48 AM BOAT REPAIRER 10/22/2024 Comment:Blood Release to pat jaquelin Ware [facility] ACCOUNT BILL - 10/23/2024 1:09 PM BOAT REPAIRER Performed at: 01 - [address] [id number] Finisher Map And Chart: Bandar Garcia PhD, Phone: [phone] Uzma Elliott MD LAB - CHEMISTRY ORD ERABLES [facility] ACCOUNT BILL [address] [place] [address] * (ABNORMAL) COMPREHENSIVE METABOLIC PANEL (10/22/2024 10:48 AM BOAT REPAIRER) Glucose 88 70 - 99 mg/dL [facility] ACCOUNT BILL BUN 20 7 - 26 mg/dL [facility] ACCOUNT BILL Creatinine 0.96 0.57 - 1.11 mg/dL [facility] ACCOUNT BILL eGFR by CKD-EPI 66(L) >=90 mL/min/1.7 3 m2 [facility] ACCOUNT BILL Sodium 142 136 - 145 mmol/L [facility] ACCOUNT BILL Potassium 4.7 3.5 - 5.1 mmol/L [facility] ACCOUNT BILL Chloride 106 98 - 107 mmol/L [facility] ACCOUNT BILL CO2 27 22 - 29 mmol/L [facility] ACCOUNT BILL Calcium 9.4 8.4 - 10.4 mg/dL [facility] ACCOUNT BILL Protein Total 6.7 6.4 - 8.3 gm/dL [facility] ACCOUNT BILL Albumin 4.3 3.4 - 5.0 gm/dL [facility] ACCOUNT BILL Bilirubin Total 0.5 0.2 - 1.2 mg/dL [facility] ACCOUNT BILL Alkaline Phosphatase 96 40 - 150 U/L [facility] ACCOUNT BILL AST 25 5 - 34 U/L [facility] ACCOUNT BILL ALT 17 0 - 55 U/L [facility] ACCOUNT BILL Blood BLOOD SPECIMEN / Unknown 10/22/2024 10:48 AM BOAT REPAIRER 10/22/2024 Comment:Blood Release to pat i Narrative [facility] ACCOUNT BILL - 10/22/2024 5:09 PM BOAT REPAIRER Performed at: [address] [place] [id number] Finisher Map And Chart: Patel De La Cruz MD, Phone: [phone] Uzma Elliott MD LAB - CHEMISTRY ORD ERABLES Performing Organization Address City/[facility] Co de Phone Number [facility] ACCOUNT BILL [address] [place] [address] * CEA BLOOD (10/22/2024 10:48 AM BOAT REPAIRER) CEA 1.8 0.0 - 4.7 ng/mL [facility] ACCOUNT BILL Comment: Nonsmokers <3.9 Smokers <5.6 [facility] Electrochemiluminescence Immunoassay (ECLIA) Values obtained with different assay methods or kits cannot be used interchangeably. Results cannot be interpreted as absolute evidence of the presence or absence of malignant disease. Blood BLOOD SPECIMEN / Unknown 10/22/2024 10:48 AM BOAT REPAIRER 10/22/2024 Comment:Blood Release to pat i Narrative [facility] ACCOUNT BILL - 10/23/2024 1:09 PM BOAT REPAIRER Performed at: [address] [place] [id number] Finisher Map And Chart: Bandar Garcia PhD, Phone: [phone] Uzma Elliott MD LAB - CHEMISTRY ORD ERABLES Performing Organization Address City/[facility] Co de Phone Number [facility] ACCOUNT BILL [address] [place] [address] * EKG 12-LEAD (10/08/2024) Supriya Figueroa MD ECG ORDERABLES Performing Organization Address City/[facility]/ZIP Co de Phone Number [facility] RESULT SCAN * ENDOSCOPY, COLON, SCREENING (07/09/2024 11:17 AM BOAT REPAIRER) Report Endoscopy POC _ Patient Name: Caryn Last Procedure Date: 07/09/2024 11:17 AM Date of : 1960 Admit Type: Outpatient Age: 64 Gender: Female Attending MD: Patel Augustin MD, [id number] _ Procedure: Colonoscopy Indications: High risk colon cancer surveillance: Personal history of colonic polyps and history of appendiceal cancer. Providers: Patel Augustin MD (Doctor) Referring MD: Pollo Ivy MD (Referring MD) Medicines: Monitored Anesthesia Care Complications: No immediate complications. _ Estimated Blood Loss: Estimated blood loss was minimal. Procedure: Pre-Anesthesia Assessment: - Prior to the procedure, a History and Physical was performed, and patient medications, allergies and sensitivities were reviewed. The patient's tolerance of previous anesthesia was reviewed. - The risks and benefits of the procedure and the sedation options and risks were discussed with the patient. All questions were answered and informed consent was obtained. After I obtained informed consent, the scope was passed under direct vision. Throughout the procedure, the patient's blood pressure, pulse, and oxygen saturations were monitored continuously. The Colonoscope was introduced through the anus and advanced to the ileocolonic anastomosis. The colonoscopy was performed without difficulty. The patient tolerated the procedure well. The quality of the bowel preparation was 10 percent obscured. Findings: The perianal exam findings include small non-thrombosed external hemorrhoids. The willian-terminal ileum appeared normal. There was evidence of a prior end-to-side ileo-colonic anastomosis in the ascending colon. This was patent and was characterized by congestion. The anastomosis was traversed. Biopsies were taken with a cold forceps for histology. Two sessile polyps were found in the transverse colon. The polyps were 7 to 8 mm in size. These polyps were removed with a hot snare. Resection and retrieval were complete. Non-bleeding internal hemorrhoids were found during retroflexion. The hemorrhoids were small. _ Impression: - Non-thrombosed external hemorrhoids found on perianal exam. - The examined portion of the ileum was normal. - Patent end-to-side ileo-colonic anastomosis, characterized by congestion. Biopsied. - Two 7 to 8 mm polyps in the transverse colon, removed with a hot snare. Resected and retrieved. - Non-bleeding internal hemorrhoids. Recommendation: - Await pathology results. - Hold eliquis for 3 days - Repeat colonoscopy in 2 years for surveillance based on pathology results. - Discharge patient to home (ambulatory). - Patient has a contact number available for emergencies. The signs and symptoms of potential delayed complications were discussed with the patient. Return to normal activities tomorrow. Written discharge instructions were provided to the patient. Procedure Code(s): --- Professional --- 23700, Colonoscopy, flexible; with removal of tumor(s), polyp(s), or other lesion(s) by snare technique 59607, 59, Colonoscopy, flexible; with biopsy, single or multiple --- Technical --- 01786, Colonoscopy, flexible; with removal of tumor(s), polyp(s), or other lesion(s) by snare technique 67262, 59, Colonoscopy, flexible; with biopsy, single or multiple Diagnosis Code(s): --- Professional --- Z86.010, Personal history of colonic polyps K64.4, Residual hemorrhoidal skin tags K64.8, Other hemorrhoids Z98.0, Intestinal bypass and anastomosis status D12.3, Benign neoplasm of transverse colon (hepatic flexure or splenic flexure) --- Technical --- Z86.010, Personal history of colonic polyps K64.4, Residual hemorrhoidal skin tags K64.8, Other hemorrhoids Z98.0, Intestinal bypass and anastomosis status D12.3, Benign neoplasm of transverse colon (hepatic flexure or splenic flexure) CPT copyright 2020 [employer]. All rights reserved. The codes documented in this report are preliminary and upon medical coder review may be revised to meet current compliance requirements. Patel Augustin MD 07/09/2024 11:50:24 AM This report has been signed electronically. 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 Blood BLOOD SPECIMEN / Unknown 04/13/2024 11:31 AM CDT 04/13/2024 Narrative Resulting Agency Comment Lab Testing performed at: [facility] [phone] Supriya Figueroa MD LAB - CHEMISTRY [facility] Organization Address City/State/ZIP Co de Phone Number [facility] ACCOUNT [place] [address] [place] [address] * DEXA BONE DENSITY AXIAL SKELETON (10/06/2021 10:42 AM BOAT REPAIRER) Anatomical Region Laterality Modality Mammography 10/06/2021 11:0 1 AM BOAT REPAIRER Narrative 10/06/2021 11:14 AM BOAT REPAIRER Bone density study (DEXA): HISTORY: Other specified disorders of bone density and structure, unspecified site, postmenopausal female EXAM LOCATION: [facility] COMPARISON: 2017 LUMBAR SPINE (L1-L4): Bone mineral density (g/cm2): 1.06 Current T-score: -1.0 Current Z-score: -0.8 Prior T-score: -0.7 Prior Z-score: -0.8 LEFT FEMORAL NECK: Bone mineral density (g/cm2): 0.81 Current T-score: -1.7 Current Z-score: -1.1 Prior T-score: -1.3 Prior Z-score: -1.0 RIGHT FEMORAL NECK (no comparison, new protocol): Bone mineral density (g/cm2): 0.84 Current T-score: -1.4 Current Z-score: -0.9 BONE DENSITY ASSESSMENT: WHO Category: Moderate osteopenia in the left femoral neck.. Please see the PACS images for additional details. World Health Organization definitions of standard deviations relative to the mean T-score: Normal bone density = -1.0 and above Osteopenia = between -1.0 and -2.5 Osteoporosis = -2.5 and below [facility]: [facility]: [facility] [address]: [facility]: [employer] [place] [facility] Out[facility]: [facility] *Reading Radiologist: Mahesh Prasad on 10/06/2021 at 11:14 AM Procedure Note Mahesh Prasad MD - 10/06/2021 Bone density study (DEXA): HISTORY: Other specified disorders of bone density and structure, unspecified site, postmenopausal female EXAM LOCATION: [facility] COMPARISON: 2016 LUMBAR SPINE (L1-L4): Bone mineral density (g/cm2): 1.06 Current T-score: -1.0 Current Z-score: -0.8 Prior T-score: -0.7 Prior Z-score: -0.8 LEFT FEMORAL NECK: Bone mineral density (g/cm2): 0.81 Current T-score: -1.7 Current Z-score: -1.1 Prior T-score: -1.3 Prior Z-score: -1.0 RIGHT FEMORAL NECK (no comparison, new protocol): Bone mineral density (g/cm2): 0.84 Current T-score: -1.4 Current Z-score: -0.9 BONE DENSITY ASSESSMENT: WHO Category: Moderate osteopenia in the left femoral neck.. Please see the PACS images for additional details. World Health Organization definitions of standard deviations relative to the mean T-score: Normal bone density = -1.0 and above Osteopenia = between -1.0 and -2.5 Osteoporosis = -2.5 and below [facility]: [facility]: [facility] [address]: [facility]: [employer] [place] [facility] Outpatient: [facility] *Reading Radiologist: Mahesh Prasad on 10/06/2021 at 11:14 AM Pollo Ivy MD DEXA ORDERABLES * HEPATITIS C ANTIBODY (06/07/2017 8:48 AM CDT) Hepatitis C Antibody Non Reactive Non Reactive [facility] ACCOUNT BILL Comment: Non Reactive - Antibodies to Hepatitis C virus (HCV) were no t detected, result does not exclude early acute HCV infection. 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 anation Adv Directive/Living Will/POA 07/01/2010 1:27 PM * Full Code (Latest Code Status on File) Date Activated Date Inactivated Comments 01/11/2024 3:22 PM 01/12/2024 7:43 PM * Full Code Date Activated Date Inactivated Comments 08/02/2023 10:37 AM 08/03/2023 11:39 AM * Full Code Date Activated Date Inactivated Comments 09/08/2020 12:43 PM 09/10/2020 11:07 AM * Full Code Date Activated Date Inactivated Comments 01/15/2019 5:36 PM 2019 7:53 PM * Full Code Date Activated Date Inactivated Comments 07/16/2016 1:52 PM 07/19/2016 12:50 PM Care Teams Regional Operations Manager Relationship Specialty Start Date End Date Pollo Ivy MD [address] [place] [address] PCP - General Family Medicine 10/03/20 Pollo Ivy MD [address] [place] [address] PCP - [facility] 09/29/21 Supriya Figueroa MD Cardiovascular Disease 08/06/16 Vicki Gilbert DO [address] [place] [address] [address] [place] [address] Obstetrics and Gynecology 06/09/18 Uzma Elliott MD [address] [place] [address] [address] [place] [address] Hematology and Oncology 09/24/20 [place] [address] [facility] [address] [place] [address] General Surgery 08/05/23
--- OUTSIDE RECORDS SUMMARY | 2024-12-05 11:01 | XMS_ITS | Clinical Summary ---
Author Organization [facility] Address [address] [place] [address] Phone Care Team Providers Care Personnel Records Clerk Name Role Phone Unavailable Primary Care Provider Unavailabl e Allergies Active Allergy Reactions Criticality Noted Date Comments Cephalexin Rash Low 10/25/2008 Penicillins Hives High 10/25/2008 Medications cholecalciferol , Vitamin D3, (VITAMIN D3) 25 mcg (1,000 unit) Capsule Take 2,500 Units by mouth. Active potassium chloride (KLOR-CON) 20 mEq Extended Release tablet Take 20 mEq by mouth 1 time daily as needed. 03/17/2020 Active BIOTIN ORAL Take by mouth. Active CRANBERRY ORAL Take by mouth. Active torsemide (DEMADEX) 10 mg Tablet Take 10 mg by mouth 1 time daily as needed. 03/21/2023 Active apixaban (Eliquis) 5 mg tablet Take 5 mg by mouth 2 times daily. 12/12/2023 Active dronedarone (Multaq) 400 mg Tablet Take 400 mg by mouth. 04/09/2024 Active omeprazole (PriLOSEC) 20 mg Capsule, Delayed Release(E.C.) Take 20 mg by mouth daily. 2024 Active Acetaminophen (Children's acetaminophen) 160 mg/5 mL solution Take by mouth every 4 hours as needed. Active acetaminophen-c affeine 500-65 mg Tablet Take 2 Tablets by mouth every 6 hours as needed. Active azelastine (ASTELIN) 137 mcg/actuation nasal spray USE 2 SPRAYS IN EACH NOSTRIL EVERY NIGHT 1 HOUR BEFORE BEDTIME 01/20/2024 Active loperamide (IMODIUM) 2 mg capsule Take 2 mg by mouth 4 times daily as needed. Active valACYclovir (Valtrex) 500 mg tablet Take 1 Tablet (500 mg) by mouth 2 times daily. 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 04/16/2024 Active Active Problems No known active problems Encounters Date Type Department Care Team Description 11/14/2024 External Device Data [facility] ABSTRACTION Provider, Abstract 11/07/2024 External Device Data [facility] ABSTRACTION Provider, Abstract 11/06/2024 External Device Data [facility] ABSTRACTION Provider, Abstract 11/03/2024 External Device Data [facility] ABSTRACTION Provider, Abstract 11/02/2024 External Device Data [facility] ABSTRACTION Provider, Abstract 10/31/2024 External Device Data [facility] ABSTRACTION Provider, Abstract 10/31/2024 External Device Data [facility] ABSTRACTION Provider, Abstract 10/17/2024 External Device Data [facility] ABSTRACTION Provider, Abstract 09/19/2024 External Device Data [facility] ABSTRACTION Provider, Abstract 09/19/2024 External Device Data [facility] ABSTRACTION Provider, Abstract 09/11/2024 External Device Data [facility] ABSTRACTION Provider, Abstract from Last 3 Months Social History Tobacco Use Types Packs/Day Years Used Date Smoking Tobacco: Never Smokeless Tobacco: Never Alcohol Use Standard Drinks/Week Comments Never 0 (1 standard drink = 0.6 oz pur e alcohol) Comments No Sex and Gender Information Value Date Recorded Sex Assigned at Not on file Legal Sex Female 1:34 PM CDT Gender Identity Not on file Sexual Orientation Not on file Last Filed Vital Signs Vital Sign Reading Time Taken Comments Blood Pressure 136/72 04/16/2024 9:39 AM CDT Pulse - - Temperature - - Respiratory Rate - - Oxygen Saturation - - Inhaled Oxygen Concentration - - Weight 109.3 kg (241 lb) 04/16/2024 9:39 AM CDT Height 167.6 cm (5' 6 ) 04/16/2024 9:39 AM CDT Body Mass Index 38.9 04/16/2024 9:39 AM CDT Plan of Treatment Health Maintenance Due Date Last Done Comments Pre-Diabetes and Diabetes Screening 1960 DTAP/TDAP/TD VACCINES (1 - Tdap) 01/17/1979 HPV/Cotest (21-29) 01/17/1981 HPV/Cotest (30-65) 01/17/1990 COLORECTAL SCREENING 01/17/2005 Colorectal Cancer Screening 01/17/2005 FIT-DNA Q 3 years 01/17/2005 FIT/FOBT Q 1 year 01/17/2005 Flex Sig/CT Colonography Q 5 years 01/17/2005 ZOSTER VACCINE (1 of 2) 01/17/2010 INFLUENZA VACCINE (#1) 2024 3, 05/15/2022, 07/20/2021, Additional history exists COVID-19 Vaccine (2023-2 5 season) 2024 07/20/2021, 11/26/2020, 11/05/2020 BREAST CANCER SCREENING 10/26/2024 10/26/19 24, 10/08/2022, 10/06/2021, Additional history exists CERVICAL CANCER SCREENING 04/16/2027 PAP SMEAR 04/16/2027 04/16/2024, 02/27, 03/19/2022, Additional history exists PAP SMEAR 04/16/2027 04/16/2024, 02/27, 03/19/2022, Additional history exists RSV VACCINE (60+ or ) (1 - 1-dose 75+ series) 01/17/2035 Procedures Procedure Name Priority Date/Time Associated Diagnosis Comments CERV/VAG CYTO AGE BASED SCREEN PAP Routine 04/16/2024 10:02 AM CDT Screening for cervical cancer from Last 3 Months or Most Recently Relevant to Health Maintenance Results * CERV/VAG CYTO AGE BASED SCREEN PAP (04/16/2024 10:02 AM CDT) COMMENT (PAP): [facility] Comment: This order for age-based cervical cancer and STI screening follows ACOG guidelines(PB 168, 140, ZDH936). See individual assays for performing site location. CLINICAL INFORMATION [facility] Comment:None given LAST MENSTRUAL PERIOD [facility] Comment:NONE GIVEN PREV PAP: [facility] Comment:NONE GIVEN PREV BX: [facility] Comment:NONE GIVEN SOURCE [facility] Comment:Endocervix ADEQUACY: [facility] Comment:SATISFACTORY FOR NISHANT LUATION PAP INTERP [facility] Comment: Cytology Results: Negative for intraepithelial lesion or malignancy. Atrophic pattern; predominantly parabasal cells COMMENT (PAP TEST) [facility] Comment: This Pap test has been evaluated with computer assisted technology. SANDBLASTING SUPERVISOR: Farshad est Liam [place] Comment: BRI OLIVA(ASCP) CT Screening location: [place] [address] [place] [address] EXPLANATORY NOTE [employer] Software[employer]achi Snowden Comment: EXPLANATORY NOTE: The Pap is a screening test for cervical cancer. It is not a diagnostic test and is subject to false negative and false positive results. It is most reliable when a satisfactory sample, regularly obtained, is submitted with relevant clinical findings and history, and when the Pap result is evaluated along with historic and current clinical information. HPV E6/E7 Not Detected Not Detected [facility] [place] Comment: Methodology: Quality Control Tech-Mediated Amplification This assay detects E6/E7 viral messenger RNA (mRNA) from 14 high-risk HPV types (16,18,31,33,35,39,45,51,52,56,58,59,66,68). Cervical sources are required for HPV testing. If a vaginal source from a patient who has had a total hysterectomy with removal of cervix was submitted, please contact the testing laboratory for alternative testing options. For additional information, please refer to http://education.Keepio/faq/RTG542s3 (This link if provided for information/ educational purposes only.) Test Performed at: [facility] [id number] [place] [id number] Karina MARKS Genital SWAB OF ENDOCERVIX / Unknown 04/16/2024 10:02 AM CDT 04/17/2024 7:27 AM CDT us Vicki Gilbert DO PATHOLOGY/CYTOLOGY ORDERABLES Final Result [facility] [phone] [facility] [id number] [place] [phone] from Last 3 Months or Most Recently Relevant to Health Maintenance Insurance [facility] [id number] [place] [address] RX [employer] Member Subscriber Plan / Payer (Ef fective 2021-Present) Name:FERNANDO KIRK Relation to Subscriber:Self Name:Fernando Kirk Payer ID:Not on file Group ID:[id number] Type:RX Medicare Part D Address: [address] [employer]INTERNAL) [facility] [employer] RX [employer] RX Member Subscriber Plan / Payer (Ef fective 2023-Present) Name:Fernando Kirk Relation to Subscriber:Self Name:Fernando Kirk Subscriber ID:Not on file Payer ID:Not on file Group ID:[id number] Type:RX Medicare Part D Address: [address] [employer] (INTERNAL) [facility] [employer]
--- OUTSIDE RECORDS SUMMARY | 2024-12-05 11:01 | XMS_ITS | Encounter Summary ---
Author Organization [facility] Address [address] [place] [address] Care Team Providers Care Tribal Judge Name Role Phone Umer Ag MD Unavailable Supriya Figueroa MD Unavailable Vicki Gilbert DO Unavailable [phone] Sarah Becerra APRN-PROPELLANT ASSEMBLER Unavailable Uzma Elliott MD Unavailable Pollo Ivy MD Primary Care Provider [phone] Juan A Marino MD Unavailable Pollo Ivy MD Unavailable [phone] Daiana Emerson RN Unavailable [phone] Pollo Ivy MD Unavailable [phone] Daiana Emerson RN Unavailable [phone] Justo Silveira MD Unavailable [phone] Daryl Fernandez [employer] Unavailable Encounter Details Date Type Department Care Team (Late st Contact Info) Description 09/17/[address] [facility] Care Pathology Lab [address] [place] [address] Melia Syed MD [address] [place] [address] Illness, unspecified Social History Tobacco Use Types Packs/Day Years Used Date Smoking Tobacco: Never Smokeless Tobacco: Never Alcohol Use Standard Drinks/Week Comments No 0 (1 standard drink = 0.6 oz pur e alcohol) Sex and Gender Information Value Date Recorded Sex Assigned at Female 09/30/2022 9:17 AM HAND SPLITTER Gender Identity Female 07/11/2019 4:06 PM HAND SPLITTER Sexual Orientation Not on file COVID-19 Exposure Response Date Recorded In the last month, have you been in contact with someone who was confirmed or suspected to have Coronavirus / COVID-19? No / Unsure 09/05/2020 7:03 AM HAND SPLITTER documented as of this encounter Functional Status Functional Status Response Date of Assess ment Is person deaf or have marlene us hearing difficulty? No 08/07/2020 Is person blind or have seri ous difficulty seeing? Yes-WEARS GLASSES 08/07/2020 Does person have serious dif ficulty walking/climbing stairs? No 08/07/2020 Does person have difficulty dressing/bathing? No 08/07/2020 Does person have difficulty doing errands alone? No 08/07/2020 Cognitive Status Response Date of Assessm ent Does person have difficulty concentrating/remembering/making decisions? No 08/07/2020 documented as of this encounter Plan of Treatment Upcoming Encounters Date Type Department Care Team (Late st Contact Info) Description 12/31/2024 8:45 AM CDT Office Visit [facility] Management Services [address] [facility] [address] [place] [address] Ludivina Weathers, BLACK LEATHER TRIMMER-PROPELLANT ASSEMBLER [address] [facility] [place] [address] [place] [address] 01/31/2025 10:30 AM CDT Office Visit [facility] Health Medical Group - Endocrinology [address] [place] [address] [address] [place] [address] Chandra Russ MD [address] [place] [address] [address] [place] [address] 04/08/2025 10:00 AM CDT Appointment [facility] Health Imaging Services - CT Scan [address] [place] [address] 04/22/2025 10:40 AM CDT Documentation [facility] Health Cancer Care [address] [place] [address] [address] [place] [address] 04/22/2025 11:00 AM CDT Office Visit [facility] Cancer Care [address] [place] [address] [address] [place] [address] [place] [address] [place] [address] [address] [place] [address] 06/17/2025 10:10 AM CDT Office Visit [facility] Heart & Vascular Care [address] [facility], [address] [place] [id number] Supriya Figueroa MD [address] [facility] [address] [facility] [address] [place] [address] documented as of this encounter Procedures Procedure Name Priority Date/Time Associated Diagnosis Comments PATH CONSULT ON REFERRED CASE Routine 09/17/2020 8:46 AM HAND SPLITTER Illness, unspecified documented in this encounter Results * PATH CONSULT ON REFERRED CASE (09/17/2020 8:46 AM HAND SPLITTER) Final Diagnosis Appendix, ileocolectomy (OSC: [id number]; 09/08/2020): - 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 The mucosa is replaced by a low grade mucinous lining, and the lumen is dilated, compressing the muscularis propria; in areas the wall is attenuated and thinned, with mucin traversing disruptions in the wall. It is not entirely clear whether these disruptions were in place prior to surgery, occurred during laparoscopic handling and removal of the appendix, or during handling of the specimen in pathology. However, aside from these disruptions, there are other areas (nondisrupted) with mucin present in the subserosa and mesoappendix (i.e. extruded from the lumen). There is no obvious mucin present on the serosal surface. 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 09/17/2020 1:58 PM [facility] PATHOLOGY LAB Clinical History The patient is a 60 year old woman with cecal mass found on colonoscopy. 09/17/2020 1:58 PM [facility] PATHOLOGY LAB Materials Received Received are 23 slide(s) labeled [id number] along with a copy of the outside pathology report. The materials originate from [facility], Pathology Department, [address] [place] [address]. All original materials are returned to the referring institution, along with a copy of our final report. 09/17/2020 1:58 PM [facility] PATHOLOGY LAB Disclaimer The performance characteristics of all immunohistochemical and indirect immunofluorescence stains (if any) cited in this report were determined by the Histopathology Laboratory of [facility]. Some of these tests were developed by our own laboratory and have not been cleared or approved by the US Food and Drug Administration. The FDA does not require this test to go through premarket FDA review. These tests are used for clinical purposes. They should not be regarded as investigational or for research. This laboratory is certified under the Clinical Laboratory Improvement Amendments (CLIA) as qualified to perform high complexity clinical laboratory testing. This case has been personally reviewed and interpreted by the attending (teaching) pathologist. 09/17/2020 1:58 PM [facility] PATHOLOGY LAB Case Report Surgical Pathology Report Case: [id number] Authorizing Provider: Melia Syed MD Collected: 09/17/2020 08:46 AM Ordering Location: [facility] Pathology Lab Received: 09/17/2020 08:46 AM Pathologist: Aissatou Kaufman MD Specimen: Slide Consultation 09/17/2020 1:58 PM [facility] PATHOLOGY LAB Synoptic Report APPENDIX: Resection (APPENDIX: RESECTION - All Specimens) 8th Edition - Protocol posted: 10/24/2019 SPECIMEN Procedure: Appendectomy and right colectomy TUMOR Tumor Site: Diffusely involving appendix Histologic Type: Low-grade appendiceal mucinous neoplasm Histologic Grade: G1: Well differentiated Tumor Size: Greatest Dimension (Centimeters): 6.5 cm Tumor Deposits: Not identified Tumor Extension: Acellular mucin invades subserosa or mesoappendix but does not extend to the serosal surface Lymphovascular Invasion: Not identified Perineural Invasion: Not identified MARGINS Proximal Margin: Uninvolved by invasive carcinoma Status of Mucinous Neoplasm at Proximal Margin: Uninvolved by appendiceal mucinous neoplasm Mesenteric Margin: Uninvolved by invasive carcinoma Status of Mucinous Neoplasm at Mesenteric Margin: Uninvolved by appendiceal mucinous neoplasm Other Margin: Distal margin Margin Status: Uninvolved by invasive carcinoma LYMPH NODES Number of Lymph Nodes Involved: 0 Number of Lymph Nodes Examined: 35 PATHOLOGIC STAGE CLASSIFICATION (pTNM, AJCC 8th Edition) Primary Tumor (pT): pT3 Regional Lymph Nodes (pN): pN0 09/17/2020 1:[address] [facility] PATHOLOGY LAB Embedded Images 09/17/2020 1:[address] [facility] PATHOLOGY LAB Pathology/Cytolo gy SURGICAL PATHOLOGY CONSULTATION AND REPORT ON REFERRED SLIDES PREPARED ELSEWHERE / Unknown 09/17/2020 8:46 AM HAND SPLITTER 09/17/2020 8:46 AM HAND SPLITTER Melia Syed MD LAB - PATHOLOGY /CYTOLOGY ORDERABLES Performing Organization Address City/State/[facility] [place] Phone Number [facility] PATHOLOGY LAB [address] [phone] documented in this encounter Visit Diagnoses Diagnosis Illness, unspecified documented in this encounter Care Teams Tribal Judge Relationship Specialty Start Date End Date Pollo Ivy MD [address] [facility] [address] [place] [address] PCP - General Family Medicine 10/03/20 Pollo Ivy MD [address] [facility] [address] [place] [address] PCP - Attributed-[place] [address] [employer] 07/29/20 10/15/21 Pollo Ivy MD [address] [place] [address] [address] [place] [address] PCP - Attributed-[facility] 09/29/21 Umer Ag MD Orthopedic Surgery 11/13/10 08/02/22 Supriya Figueroa MD Cardiovascular Disease 08/06/16 Vicki Gilbert DO [address] [place] [address] [address] [place] [address] Obstetrics and Gynecology 06/09/18 Sarah Becerra APRN-PROPELLANT ASSEMBLER [address] [place] [address] [address] [place] [address] Nurse Practitioner Nurse Practitioner Adult Health 09/24/20 08/02/22 Uzma Elliott MD [address] [place] [address] [address] [place] [address] Hematology and Oncology 09/24/20 Juan A Marino MD [address] [facility] [address] [place] [address] Physician General Surgery 10/03/20 08/02/22 Daiana Emerson RN [address] [place] [address] [address] [place] [address] Operations And Maintenance TechnicianChemical Operations And Training 04/24/21 12/11/23 [place] [address] [place] [address] [address] [place] [address] Care Management 04/21/21 11/29/23 [place] [address] [place] [id number] General Surgery 08/05/23 Daryl Fernandez MSW Outpatient Scrap Baller Care Management 01/13/24 01/13/24 documented as of this encounter
--- OUTSIDE RECORDS SUMMARY | 2024-12-05 11:01 | XMS_ITS | Encounter Summary ---
Author Organization [facility] Address [address] [place] [address] Care Team Providers Care R And D Lab Technician Name Role Phone Umer Ag MD Unavailable [phone] Serg Herb Primary Care Provider Rebecca Greenwood DO Primary Care Provi gabriella Pollo Ivy MD Primary Care Provider [phone] Deborah Ag PA-C Primary Care Provider [phone] Supriya Figueroa MD Unavailable Vicki Gilbert DO Unavailable [phone] Ludivina Weathers GENERAL COUNSELOR-CHIEF WHARFINGER Unavailable [phone] Ludivina Weathers GENERAL COUNSELOR-CHIEF WHARFINGER Unavailable Sarah Becerra GENERAL COUNSELOR-CHIEF WHARFINGER Unavailable [phone] Uzma Elliott MD Unavailable [phone] Pollo Ivy MD Primary Care Provider [phone] Juan A Marino MD Unavailable [phone] Pollo Ivy MD Unavailable [phone] Daiana Emerson RN Unavailable [phone] Pollo Ivy MD Unavailable [phone] Daiana Emerson RN Unavailable [phone] Justo Silveira MD Unavailable Daryl Fernandez PORCELAIN ENAMEL REPAIRER Unavailable Ludivina Weathers GENERAL COUNSELOR-CHIEF WHARFINGER Unavailable [phone] Ludivina Weathers GENERAL COUNSELOR-CHIEF WHARFINGER Unavailable [phone] Pollo Ivy MD Unavailable [phone] Pollo Ivy MD Unavailable Encounter Details Date Type Department Care Team (Late st Contact Info) Description 06/15/2010 [facility] Ricco Portillo MD [address] [place] [address] Social History Tobacco Use Types Packs/Day Years Used Date Smoking Tobacco: Never Alcohol Use Standard Drinks/Week Comments No 0 (1 standard drink = 0.6 oz pur e alcohol) Sex and Gender Information Value Date Recorded Sex Assigned at Female 09/30/2022 9:17 AM FINAL CLEANER Gender Identity Female 07/11/2019 4:06 PM FINAL CLEANER Sexual Orientation Not on file documented as of this encounter Plan of Treatment Upcoming Encounters Date Type Department Care Team (Late Contact Info) Description 12/31/2024 8:45 AM CDT Office Visit [facility] Health Weight Management Services [address] [place] [address] [address] [place] [address] Ludivina Weathers, GENERAL COUNSELOR-CHIEF WHARFINGER [id number] [place] [address] [address] [place], [place] [id number] 01/31/2025 10:30 AM CDT Office Visit [facility] Health Medical Group - Endocrinology [address] [place] [address] [address] [place] [address] Chandra Russ MD [address] [facility] [address] [place] [address] 04/08/2025 10:00 AM CDT Appointment [facility] Health Imaging Services - CT Scan [address] [place] [address] 04/22/2025 10:40 AM CDT Documentation [facility] Health Cancer Care [address] [place] [address] [address] [place] [address] 04/22/2025 11:00 AM CDT Office Visit [facility] Health Cancer Care [address] [place] [address] Uzma Elliott MD [address] [place] [address] [address] [place] [address] 06/17/2025 10:10 AM CDT Office Visit [facility] Health Heart & Vascular Care [address] [facility], [address] [place] [address] Supriya Figueroa MD [address] [facility] [address] [place] [address] documented as of this encounter Visit Diagnoses Not on filedocumented in this encounter Care Teams R And D Lab Technician Relationship Specialty Start Date End Date Herb Ulrich DO [address] [place] [address] PCP - General Family Medicine 02/07/12 02/07/12 Rebecca Greenwood DO [address] [address] PCP - General 02/08/12 02/15/12 Pollo Ivy MD [address] [place] [address] PCP - General Family Medicine 06/21/16 07/15/16 Deborah Ag PA-C [address] [place] [address] 200 [place] [address] PCP - General Internal Medicine 07/16/16 08/05/16 Ludivina Weathers APRN-CHIEF WHARFINGER [address] [place] [address] PCP - Attributed-[employer] 02/26/19 08/28/19 Ludivina Weathers APRN-CHIEF WHARFINGER [address] [place] [address] PCP - Attributed-[place] [employer] 03/29/20 07/28/20 Pollo Ivy MD [address] [facility] [address] [place] [address] PCP - General Family Medicine 10/03/20 Pollo Ivy MD [address] [facility] [address] [place] [address] PCP - Attributed-[place] [employer] 07/29/20 10/15/21 Pollo Ivy MD [address] [facility] [address] [place] [address] PCP - Attributed-[facility] [place] 09/29/21 Ludivina Weathers APRN-CHIEF WHARFINGER [address] [place], [place] [id number] PCP - Attributed-[employer] 04/20/18 07/18/18 Ludivina Weathers APRN-CHIEF WHARFINGER [address] [place] [address] PCP - Attributed-[employer] 10/05/18 01/04/19 [place] [address] [place] [address] 200 [place] [address] PCP - Attributed-[employer] 07/19/18 10/04/18 Pollo Ivy MD [address] [place] [address] PCP - Attributed-[employer] 01/05/19 02/25/19 Umer Ag MD Orthopedic Surgery 11/13/10 08/02/22 Supriya Figueroa MD [address] [place] [address] Cardiovascular Disease 08/06/16 Vicki Gilbert DO [address] [place] [address] [address] [place] [address] Obstetrics and Gynecology 06/09/18 Sarah Becerra APRN-CHIEF WHARFINGER [address] [place] [address] Nurse Practitioner Nurse Practitioner Adult Health 09/24/20 08/02/22 Uzma Elliott MD [address] [place] [address] Hematology and Oncology 09/24/20 Juan A Marino MD [address] [facility] [address] [place] [address] Physician General Surgery 10/03/20 08/02/22 [place] [address] [place] [address] 200 [place] [address] Casting And Pasting SupervisorDirector Of Clinical Trials 04/24/21 12/11/23 Daiana Emerson, RN [address] [facility] [address] [place] [address] Care Management 04/21/21 11/29/23 [place] [address] [address] General Surgery 08/05/23 Daryl Fernandez MSW Outpatient Automotive Airconditioning Mechanic Care Management 01/13/24 01/13/24 documented as of this encounter
[2024-12-05 11:09] LABS: Basophils Absolute Auto 0.1 K/mm3 (0.0-0.1); Basophils Percent Auto 1.2 % (0.2-1.2); Eosinophils Absolute Auto 0.1 K/mm3 (0-0.3); Eosinophils Percent Auto 1.9 % (0-4.4); Hematocrit 38.8 % (37.0-47.0); Hemoglobin 12.1 g/dL (12.0-15.0); Immature Granulocyte Absolute 0.01 K/mm3 (0.00-0.031); Immature Granulocyte Percent A 0.2 % (0-0.5); Lymphocytes Percent Auto 40.3 % (18.3-44.2); Mean Corpuscular HGB Conc 31.2 g/dl (32-36); Mean Corpuscular Hemoglobin 30.6 pg (26-34); Mean Corpuscular Volume 98.2 fl (80-100); Mean Platelet Volume 10.6 fl (7.4-10.4); Monocytes Absolute Auto 0.4 K/mm3 (0.1-0.6); Monocytes Percent Auto 9.5 % (2.6-8.5); Neutrophils Percent Auto 46.9 % (45.5-73.1); Platelet Count Result 219 k/mm3 (150-375); Red Blood Count 3.95 M/mm3 (4.2-5.4); White Blood Count 4.2 K/mm3 (4.5-10.0)
[2024-12-05 11:23] LABS: Hemoglobin A1C 5.5 % (<5.7)
[2024-12-05 11:29] LABS: Albumin Level 4.3 g/dL (3.5-5.1)
[2024-12-05 11:30] LABS: Anion Gap 7 mmol/L (4-12); Blood Urea Nitrogen 14 mg/dL (7-17); Carbon Dioxide 27 mmol/L (22-30); Chloride 104 mmol/L (98-107); Estimated Glomerular Filt Rate > 60; Glucose 84 mg/dL (65-110); Potassium 3.9 mmol/L (3.4-5.0); Sodium 138 mmol/L (137-145)
[2024-12-05 12:28] LABS: MRSA (PCR) NOT DETECTED (NOT DETECTE)
[2024-12-05 12:46] LABS: Urine Cotinine NEGATIVE
== END 2024-12-05 09:46 | disposition home or self-care (01) ==
LOC: ANHSURGERY 09:51
PROVIDERS: Anesthesiology; Visit Provider Orthopaedic Surgery
DX: M16.11 Unilateral primary osteoarthritis, right hip (principal); Z51.81 Encounter for therapeutic drug level monitoring
CPT/HCPCS: 36415; 80048; 80307; 82040; 83036; 85025; 86850; 86900; 86901; 87641

== ENCOUNTER 2024-12-17 01:19 | Day surgery (SDC) | payer MEDICARE, SELFPAY ==
--- NOTE | 2024-12-05 09:38 | PC.NURSE ---
Addendum entered by Emmy Dykes RN 12/05/24 13:11: ERROR/CLARIFICATION- HOLD ELIQUIS PER DR TOPETE. Original Note: Report to the Outpatient Waiting Room, entrance under the green pavilion located off [facility], at time __6:00AM on date ___12/17/24____. Planned Procedure Time: ___7:30AM .? Time changes happen often and if your time is changed the preop area will call you the afternoon before. - You and your visitor will be asked to self-screen and do not enter if you have any COVID symptoms. Please call surgeon if you need to reschedule. - A mask is optional within the hospital at this time. Patients may have clear liquids (water, carbonated beverages, clear teas, apple juice) until 3 hours prior to surgery (4:30AM) with a maximum of 20 ounces. - No food from midnight until time of surgery and no smoking, or chewing tobacco (or any form of nicotine). No chewing gum, candy or mints. Take only the following medications with a SIP of water on the morning of surgery: ___DRONEDARONE DO NOT STOP ANY OF YOUR OTHER PRESCRIPTION MEDICATIONS PRIOR TO SURGERY EXCEPT THE FOLLOWING Hold all vitamins and supplements for 3 days per anesthesiologist. -LAST DOSE 12/13/24 Medications to discontinue per physician ____HOLD ELIQUIS 3 DAYS PRE-OP PER DR MAGDALENO Date to take last dose____12/13/24 Please no make-up, nail andorran, hairspray, perfume, deodorant, or body powder the day of surgery.? No jewelry (including any body piercings) or valuables the day of surgery, leave them at home.? Please take a shower or bath the night before, or the morning of, surgery with an antibacterial soap.? Wear comfortable, loose fitting clothing.? - Jewelry must be removed prior to entering the operating room.? Rings and piercings that are not removed may be cut off. - The hospital will not accept responsibility for valuables.? - Please leave all valuables, including medications, at home the day of surgery. If you are going home after surgery, a licensed bulk delivery driver must drive you home.? - NO public transportation without another adult if you receive anesthesia. - We recommend that an adult stay with you for 24 hours following discharge. - We also recommend that you do not drive, make important decision, drink alcoholic beverages, or take any drugs that were not prescribed by your health care provider for at least 24 hours after your discharge time. Follow any additional instructions given to you from your surgeon. Telephone instructions given to ___PATIENT and asked if any additional questions and then verbalized understanding. Patient advised to call surgeon office or pre surgery nurse liaison [phone] if any additional questions.
[2024-12-05 10:10] VITALS: BP 138/61; PULSE 64; RESP 16; TEMP 36.3; O2SAT 100; BMI 35.3
--- NOTE | 2024-12-13 06:44 | PM.IMHP ---
H&P: HPI History of Present Illness Date/Time: 12/13/24 06:44 Chief Complaint: Patient has [id number] arthritis right hip. She has failed conservative treatment like to consider hip replacement surgery. She has a difficult time walking and doing her activities of daily living at this time. Review of Systems Musculoskeletal: Musculoskeletal: Reports arthralgias, Reports joint swelling and Reports stiffness Neurologic: Reports abnormal gait [facility] Past Medical History Medical History Appendiceal carcinoid tumor Surgical History Surgical History Gastric bypass status for obesity Family History Family History (Updated 08/30/24 @ 07:50 by Sharmila Willett CMA) Sibling Cerebrovascular accident History of blood clots Other Hypertension Social History Social History Smoking status: Never smoker Second hand tobacco smoke exposure: No Alcohol intake: never Substance use: never Substance use type: does not use Do You Feel Safe in your Home?: Yes Lack of Transportation: No Lack of Food: Never True Current Housing: I Have Housing Concerned About Future Housing: No Difficulty Paying Gas/Electric Bills: No Difficulty Paying for Meds: No Currently Unemployed: No Education: Trade/Vocational Certificate Difficulty w/ Childcare or Family Care: No Living arrangements: with family Additional living arrangements comments: PHI 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 Gender identity (if verbalized by the patient): Female Spiritual care concerns: No Meds Home Medications and Allergies Home Medications ?Medication ?Instructions ?Recorded ?Confirmed ?Type apixaban 5 mg tablet (Eliquis) 5 mg PO Q12H 04/12/24 12/05/24 History biotin 5,000 mcg-choline 100 1 cap PO DAILY 04/12/24 12/05/24 History mg-silicon 5 mg capsule cholecalciferol (vitamin D3) 50 50 mcg PO DAILY 04/12/24 12/05/24 History mcg (2,000 unit) capsule (Vitamin D3) dronedarone 400 mg tablet (Multaq) 400 mg PO BID 04/12/24 12/05/24 History potassium chloride 20 mEq 20 meq PO DAILY 04/12/24 12/05/24 History tablet,extended release(part/cryst) torsemide 10 mg tablet 10 mg PO DAILY 04/12/24 12/05/24 History acetaminophen 650 mg 1,300 mg PO Q8H PRN pain 12/05/24 12/05/24 History tablet,extended release (Tylenol Arthritis Pain) calcium carbonate 500 mg PO TID 12/05/24 12/05/24 History cranberry 500 mg capsule 1,000 mg PO DAILY 12/05/24 12/05/24 History jfceciyk-lxnanksp-qwex 45 mg-folic 1 cap PO DAILY 12/05/24 12/05/24 History acid 800 mcg-vit K 120 mcg capsule (Bariatric Multivitamins) phytonadione (vitamin K1) 5 mg 5 mg PO DAILY 12/05/24 12/05/24 History tablet Allergies Allergy/AdvReac Type Severity Reaction Status Date / Time cephalexin (From Keflex) Allergy Intermediate Rash Verified 12/05/24 09:59 Penicillins Allergy Intermediate Hives Verified 12/05/24 09:59 Exam Narrative: On exam she has limited motion of her hip. Internal rotation is 0 on the right external rotation about 40. She has a positive Stinchfield test grinding crepitus and pain with manipulation. She walks with an antalgic gait. Eyes: General: appearance normal, both eyes and all related structures Neck: Neck: supple Resp: Effort & Inspection: normal respiratory effort Cardio: Rate: regular rate Rhythm: regular rhythm Radiology Reports: Comments: Umer Ag M.D. Orthopedics XRay Report Ambulatory Signed Patient: Caryn Last Date of Service: 04/12/24 Results of Diagnostic Exam (Interpreted Today) Order: 04/12/24 07:07 XR hip RT 2V w AP pelvis Routine Interpretation: AP lateral right hip with the pelvis she demonstrates moderately severe degenerative arthritis right hip. No fracture, lesions, masses are appreciated. Hip/Pelvis X-Ray 04/12/24 Orthopedics Result Report 04/16/24 Assessment and Plan Assessment and plan (1) Osteoarthritis of right hip: Code(s): M16.11 - Unilateral primary osteoarthritis, right hip Status: Acute Assessment and Plan: Patient has an arthritic right hip. She has failed conservative treatment like to consider hip replacement surgery. I have discussed this with her in detail. I discussed the risks benefits limitations and alternatives. Will proceed per her request at the hip arthroplasty on the right.
[2024-12-17] VITALS (16 sets, daily range): BP systolic 93–136; BP diastolic 32–85; PULSE 52–84; RESP 14–20; TEMP 36.2–36.8; O2SAT 91–100
--- NOTE | ~2024-12-17 | XR_ITS ---
EXAMINATION: XR surgery orthopedic DATE: 12/17/2024 09:31 INDICATION: Intraoperative evaluation during right total hip arthroplasty TECHNIQUE: Frontal view of the right hip was obtained. COMPARISON: None. FINDINGS: Intraoperative image during a right total hip arthroplasty demonstrate placement of an acetabular com ponent which is fixed with at least 2 screws and which appears in near anatomic alignment on the sing le image provided. A femoral broach is in place with the proximal tip centered over the acetabular c omponent on the initial image. This is subsequently replaced with a standard femoral component on the subsequent image. Portions of the pelvis are excluded from the [id number] are obscured by a bolst er. No fractures in the visualized bones. IMPRESSION: 1. Expected appearance during right total hip arthroplasty. Reviewed, dictated and finalized at location A.
--- OUTSIDE RECORDS SUMMARY | 2024-12-17 01:24 | XMS_ITS | Data Portability ---
Author Organization [place] [employer], Main Office Address [address] [place] [address] Assessment Encounter Date Assessment Date Assessment LastModified [...] see her back on an as-needed basis. [email or web address] Not available 11/02/2022 14:07:25 Plan of Treatment Reminders Order Date Submit Date Provider Last Modified By Organization Details Last Modified Time Details Appointments None recorded. Lab None recorded. Referral None recorded. Procedures injection/a spiration joint/bursa (PROC) 2022 023 [email or web address] Not available 11:12:58 Surgeries None recorded. Imaging MRI, hip, w/o contrast 2022 023 [facility], [address], [place], [address], 3 10:27:41 Medication Orders bupivacaine HCl 0.5 % (5 mg/mL) injection solution [address] [facility][id number], [facility] [address], [id number], 3 11:19:15 Kenalog 10 mg/mL suspension for injection [address] [facility] #[id number], [facility] [address], [id number], 3 11:19:15 prednisone 10 mg tablets in a dose pack [address] [facility] #[id number], [facility] [address], [id number], 3 11:19:15 Patient TargetsNo targets recorded. Patient InstructionsNo instructions recorded. Reason for Referral None Reported. Results Created Date Observation Date Name Description Value Unit Range Abnormal Flag Note LastModifiedBy Organization Detail LastModifiedTime 10/29/1908/19/2022 XR, hip + pelvi s, unila teral , 2 or 3 view No observ ation record ed. [email or web address] Not Available 2022 10:27:52 10/29/19 MRI hip RT wo [facility] [address] [facility] [place] [address] Patien t Name: CARYN FIGUEREDO ion #: [id number] Sex: F : 1959 5 Locati [...] likely physio logic. Page 1 of [address] [facility] Patien t Name: CARYN FIGUEREDO Access ion #: [id number] Sex: F : 1959 5 Exam [...] MD (CT) (CT) Page 2 of [address] (Imaging) [address] [place], [place] [address], [place], [address], 10/28/2022 14:52:09 10/30/19 23 10/28/2022 MRI, hip, w/o contr ast No observ ation record ed. [email or web address] [facility] [address], [place], [address], 10/29/2022 10:27:41 11/10/19 23 10/28/2022 MRI, hip, w/o contr ast No observ ation record ed. [email or web address] [facility] [address], [place], [address], 11/09/2022 09:44:41 Result Notes None recorded. Problems Name Problem SNOMED Code Status Onset Date Resolution Date Notes Provider Name and Address Organization Details Recorded Time Pain in right hip joint 7422482804574 02 Active 2022 FREEMAN Gramajo null, [place] 3 10:52:59 Trochanteri c bursitis of right hip 6155450414196 00 Active 2022 Leon Ag MD [address] [facility] [address], [address], [place] 3 14:07:33 Osteoarthri tis of right hip joint 6432740077395 07 Active 2022 Leon Ag MD [address] [facility] [address] [address], [place], [address], [place] 3 14:07:38 Problem Notes None recorded. Procedures Surgical History Date Name Laterality Status Provider Name and Address Organization Details Recorded Time 3 Ortho - Cortisone Injection completed Leon Ag MD [address] [place] [address], [place], [address], [employer] [place] 10/28/2022 11:20:13 1 procedure on appendix completed FREEMAN Gramajo [facility] 10/28/2022 10:51:37 9 total knee replacement completed Iona Aggarwal, ATC L [place] [facility] [email or web address] 10/28/2022 10:51:00 6 total knee replacement completed Iona Aggarwal, ATC L [place] [facility] 10/28/2022 10:50:49 Imaging Results Imaging Date Name Status LastModified by Organiz ation Details LastModified Time 08/19/2022 XR, hip + pelvis, unilateral, 2 or 3 view completed [email or web address] Information not available 10/28/2022 10:27:52 10/28/2022 MRI hip RT wo completed [address] (Imaging) [address] [place], [address], 10/28/2022 14:52:09 10/28/2022 MRI, hip, w/o contrast completed [email or web address] [facility] [address], [place], [address], 10/29/2022 10:27:41 10/28/2022 MRI, hip, w/o contrast completed [email or web address] [facility] [address], [place], [address], 11/09/2022 09:44:41 Procedure Notes None recorded. Medical Equipment None Reported. Allergies Allergen ID Allergen Name Allergen Category Reaction Reaction Severity Criticality Documentation Date Start Date Code Code System Note Provider Name and Address Organization Details Recorded Time Keflex medicatio n Not available Not available Not available 10/28/2022 7 RxNorm Iona Aggarwal , ATC L null, [place] [facility] [email or web address] 10:48:59 67721 Product containin g penicilli n (product) medicatio n Not available Not available Not available 10/28/2022 33105 8001 SNOMED Iona Aggarwal , ATC L null, [place] [facility] [email or web address] 10:49:34 Medications Name Sig Start Date Stop [...] 20 mg by injection route. 2022 active [facility]: [phone]- [phone] [phone] Not Available Not Available [...] Updated DateTime 10/28/2022 167.64 cm 37.1 kg/m2 843727.25 g Iona Aggarwal, ATC L [place] [facility] 10/28/2022 10:48:41 Date Recorded Body height Body mass index (BMI) Body weight Provider Name and Address Organization Details Last Updated DateTime 11/02/2022 167.64 cm 37.1 kg/m2 635538.25 g Soraida RAFA Esquivel [facility] [employer] [facility] 11/02/2022 13:57:16 Social History Question Answer Notes LastModified by Organizat ion Details LastModified Time Tobacco Smoking Status Never Smoker Iona Izaguirrephan, ATC L null, [facility] [employer] [facility] 10/28/2022 10:50:29 What Is Your Level Of [...] SNOMED-CT Code Diagnosis ICD10 Code Diagnosis Note [id number] Leon Ag MD [facility]o [place] [address] [place] [address] 10/28/2022 10:25:36 10/28/2022 11:50:01 Pain in right hip joint 4439117469 10507 M25.551 [id number] Leon Ag MD [facility] [place] [address] [place] [address] 11/02/2022 13:50:21 11/02/2022 15:41:05 Pain in right hip joint 6255028037 28302 M25.551 Trochanter ic bursitis of right hip 4638937204 19806 M70.61 Osteoarthr itis of right hip joint 7166076940 48463 M16.11 Health Concerns Section Related Observation LastModified by Organization Detai ls LastModified Time None Recorded Concern Status LastModified by Organization Details LastModified Time None Recorded Advance Directives Directive None Recorded Payers Encounter Date Sequence Insurance Name Policy Number Policy Hart Covered Member ID Hart Member ID Guarantor Name 10/28/2022 1 [facility] (MEDICARE REPLACEMENT/A DVANTAGE - PPO) [id number] Caryn Paulino Berhane [id number] Caryn Last 11/02/2022 1 [facility] (MEDICARE REPLACEMENT/A DVANTAGE - PPO) [id number] Caryn Paulino Berhane [id number] Caryn Last Notes Date Note Type Note [...] Leon Ag MD [address], [place], [address], [employer] [place] 10/28/2022 11:23:39 11/02/2022 text/html Patient presents hip pain right. She is tender over the trochanteric region but even more in the groin worse with activity somewhat relieved by rest it has been going on for several months and seems to be getting worse. She has a hard time even ambulating at this point. Leon Ag MD [address], [place], [address], [place] 11/02/2022 14:07:57 OBGyn Episode No OBEpisode recorded.
--- OUTSIDE RECORDS SUMMARY | 2024-12-17 01:24 | XMS_ITS | Clinical Summary ---
Author Organization [facility] Address [address] [place] [address] Phone Care Team Providers Care Process Technician Name Role Phone Unavailable Primary Care Provider [...] daily. 90 Tablet 4 10/24/2024 2:25 PM FEED WEIGHER 04/16/2024 Active Active Problems No known active [...] 1960 DTAP/TDAP/TD VACCINES (1 - Tdap) 01/17/1979 COLORECTAL SCREENING 01/17/2005 Colorectal Cancer Screening 01/17/2005 FIT-DNA Q 3 years 01/17/2005 FIT/FOBT Q 1 year 01/17/2005 Flex Sig/CT Colonography Q 5 years 01/17/2005 ZOSTER VACCINE (1 of 2) 01/17/2010 INFLUENZA VACCINE (#1) 2024 , 05/15/2022, 07/20/2021, Additional history exists COVID-19 Vaccine (2023-2 5 season) 2024 07/20/2021, 11/26/2020, 11/05/2020 BREAST CANCER SCREENING 10/26/2024 10/26/19 24, 10/08/2022, 10/06/2021, Additional history exists PAP SMEAR 04/16/2027 04/16/2024, 02/27, 03/19/2022, Additional history exists CERVICAL CANCER SCREENING 04/16/2029 HPV/Cotest (21-29) 04/16/2029 04/16/2024, 0 03/25/2023, 03/19/2022, Additional history exists HPV/Cotest (30-65) 04/16/2029 04/16/2024, 0 03/25/2023, 03/19/2022, Additional history exists RSV VACCINE (60+ or ) (1 - 1-dose 75+ series) 01/17/2035 Procedures Procedure Name Priority Date/Time Associated Diagnosis Comments CERV/VAG CYTO AGE BASED SCREEN PAP Routine 04/16/2024 10:02 AM CDT Screening for cervical cancer from Last 3 Months or Most Recently Relevant to Health Maintenance Results * CERV/VAG CYTO AGE BASED SCREEN PAP (04/16/2024 10:02 AM CDT) COMMENT (PAP): [facility] Comment: This order for age-based cervical cancer and STI screening follows ACOG guidelines(PB 168, 140, PKS385). See individual assays for performing site location. CLINICAL INFORMATION [facility] Comment:None given LAST MENSTRUAL PERIOD [facility] Comment:NONE GIVEN PREV PAP: [facility] Comment:NONE GIVEN PREV BX: [facility] Comment:NONE GIVEN SOURCE [facility] Comment:Endocervix ADEQUACY: [facility] Comment:SATISFACTORY FOR NISHANT LUATION PAP INTERP [facility] Comment: Cytology Results: Negative for intraepithelial lesion or malignancy. Atrophic pattern; predominantly parabasal cells COMMENT (PAP TEST) [facility] Comment: This Pap test has been evaluated with computer assisted technology. C WPF DEVELOPER: Farshad [place] Comment: BRI OLIVA(ASCP) CT Screening location: [place] [address] [place] [address] EXPLANATORY NOTE Que [facility] [place] Comment: EXPLANATORY NOTE: The Pap is [...] information. HPV E6/E7 Not Detected Not Detected [facility] Comment: Methodology: Planet[employer] Sky Show Technician-Mediated Amplification This assay detects E6/E7 viral messenger RNA (mRNA) from 14 high-risk HPV types (16,18,31,33,35,39,45,51,52,56,58,59,66,68). Cervical sources are required for HPV testing. If a vaginal source from a patient who has had a total hysterectomy with removal of cervix was submitted, please contact the testing laboratory for alternative testing options. For additional information, please refer to http://education.OuiCar/faq/BUL249w4 (This link if provided for information/ educational purposes only.) Test Performed at: [facility] [address] [place] [address] Karina MARKS Genital SWAB OF ENDOCERVIX / Unknown 04/16/2024 10:02 AM CDT 04/17/2024 7:27 AM CDT us Vicki Gilbert DO PATHOLOGY/CYTOLOGY ORDERABLES Final Result [facility] [address] [address] [phone] [employer] [id number] [place] [address] from Last 3 Months or Most Recently Relevant to Health Maintenance Insurance [facility] [id number] [place] [address] RX [employer] RX Member Subscriber Plan / [...] Address: EMILIO ZACARIAS RX CASEY PLANS (INTERNAL) [facility] Internal Plans
--- OUTSIDE RECORDS SUMMARY | 2024-12-17 01:24 | XMS_ITS | Encounter Summary ---
Author Organization [facility] Address [address] [facility] [place] [address] Care Team Providers Care Building Construction Ironworker Name Role Phone Umer Ag MD Unavailable Supriya Figueroa MD Unavailable Vicki Gilbert DO Unavailable [phone] Sarah Becerra APRN-STATE COMPTROLLER Unavailable Uzma Elliott MD Unavailable Pollo Ivy MD Primary Care Provider [phone] Juan A Marino MD Unavailable Pollo Ivy MD Unavailable [phone] Daiana Emerson RN Unavailable Pollo Ivy MD Unavailable [phone] Daiana Emerson RN Unavailable Justo Silveira MD Unavailable Daryl Fernandez WIRE TESTER Unavailable [phone] Encounter Details Date Type Department Care Team (Late st Contact Info) Description 09/17/2020 Lab Requisition [facility] Care Pathology Lab [address] [place] [address] Melia Syed MD [address] [place] [address] Illness, unspecified Social History Tobacco Use Types Packs/Day Years Used Date Smoking Tobacco: Never Smokeless Tobacco: Never Alcohol Use Standard Drinks/Week Comments No 0 (1 standard drink = 0.6 oz pur e alcohol) Comments No Sex and Gender Information Value Date Recorded Sex Assigned at Female 09/30/2022 9:17 AM ALCOHOL AND DRUG COUNSELOR Legal Sex Female 4:21 AM ALCOHOL AND DRUG COUNSELOR Gender Identity Female 07/11/2019 4:06 PM ALCOHOL AND DRUG COUNSELOR Sexual Orientation Not on file 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 No / Unsure 09/05/2020 7:03 AM ALCOHOL AND DRUG COUNSELOR documented as of this encounter Functional Status * Is person deaf or have serious hearing difficulty? Answer Date of Assessment Author No 08/07/2020 10:25 AM Surya Bell RN * Is person blind or have serious difficulty seeing? Answer Date of Assessment Author Yes 08/07/2020 10:25 AM Surya Bell RN * Does person have serious difficulty walking/climbing stairs? Answer Date of Assessment Author No 08/07/2020 10:25 AM Surya Bell RN * Does person have difficulty dressing/bathing? Answer Date of Assessment Author No 08/07/2020 10:25 AM Surya Bell RN * Does person have difficulty doing errands alone? Answer Date of Assessment Author No 08/07/2020 10:25 AM Surya Bell RN documented as of this encounter Mental Status * Does person have difficulty concentrating/remembering/making decisions? Answer Entry Date Author No 08/07/2020 10:25 AM Surya Bell RN documented in this encounter Plan of Treatment Upcoming Encounters Date Type Department Care Team (Late st Contact Info) Description 12/31/2024 8:45 AM CDT Office Visit [facility] Health Weight Management Services [address] [facility] [address] [place] [address] Ludivina Weathers, WATERWORKS EMPLOYEE-STATE COMPTROLLER [address] [facility] [address] [place] [address] 01/31/2025 10:30 AM CDT Office Visit [facility] Health Medical Group - Endocrinology [address] [facility] [address] [place] [address] Chandra Russ MD [address] [facility] [address] [place] [address] 04/08/2025 10:00 AM CDT Appointment [facility] Health Imaging Services - CT Scan [address] [place] [address] 04/22/2025 10:40 AM CDT Documentation [facility] Health Cancer Care [address] [place] [address] [address] [place] [address] 04/22/2025 11:00 AM CDT Office Visit [facility] Health Cancer Care [address] [place] [address] [address] [place] [address] Uzma Elliott MD [address] [place] [address] [address] [place] [address] 06/17/2025 10:10 AM CDT Office Visit [facility] Health Heart & Vascular Care [address] [facility] [place] [address] Supriya Figueroa MD [address] [facility] [address] [place] [address] documented as of this encounter Procedures Procedure Name Priority Date/Time Associated Diagnosis Comments PATH CONSULT ON REFERRED CASE Routine 09/17/2020 8:46 AM ALCOHOL AND DRUG COUNSELOR Illness, unspecified documented in this encounter Results * PATH CONSULT ON REFERRED CASE (09/17/2020 8:46 AM ALCOHOL AND DRUG COUNSELOR) Final Diagnosis Appendix, ileocolectomy (OSC: [id number]; 09/08/2020): - 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 09/17/2020 1:58 PM [facility] Clinical History The patient is a 60 year old woman with cecal mass found on colonoscopy. 09/17/2020 1:58 PM [facility] Materials Received Received are 23 slide(s) labeled [id number] along with a copy of the outside pathology report. The materials originate from [facility], Pathology Department, [address] [place] [address]. All original materials are returned to the referring institution, along with a copy of our final report. 09/17/2020 1:58 PM [facility] Disclaimer The performance characteristics of all immunohistochemical and indirect immunofluorescence stains (if any) cited in this report were determined by the Histopathology Laboratory of [facility]. Some of these tests were developed by [...] the attending (teaching) pathologist. 09/17/2020 1:58 PM [facility] Case Report Surgical Pathology Report Case: [id number] Authorizing Provider: Melia Syed MD Collected: 09/17/2020 08:46 AM Ordering Location: [facility] Pathology Lab Received: 09/17/2020 08:46 AM Pathologist: Aissatou Kaufman MD Specimen: Slide Consultation 09/17/2020 1:58 PM [facility] Synoptic Report APPENDIX: Resection (APPENDIX: [...] Lymph Nodes (pN): pN0 09/17/2020 1:58 PM ALCOHOL AND DRUG COUNSELOR [facility] Embedded Images 09/17/2020 1:58 PM [facility] Pathology/Cytolo gy SURGICAL PATHOLOGY CONSULTATION AND REPORT ON REFERRED SLIDES PREPARED ELSEWHERE / Unknown 09/17/2020 8:46 AM ALCOHOL AND DRUG COUNSELOR 09/17/2020 8:46 AM ALCOHOL AND DRUG COUNSELOR Melia Syed MD LAB - PATHOLOGY/CYTOLOG Y ORDERABLES Final Result [facility] [address] [place] [address], [facility] [phone] documented in this encounter Visit Diagnoses Diagnosis Illness, unspecified documented in this encounter Care Teams Building Construction Ironworker Relationship Specialty [place] [address] [place] [address] [address] [place] [address] PCP - General Family Medicine 10/03/20 Pollo Ivy MD [address] [place] [address] [address] [place] [address] PCP - Attributed-[employer] 07/29/20 10/15/21 Pollo Ivy MD [address] [place] [address] [address] [place] [address] PCP - Attributed-[facility] 09/29/21 Umer Ag MD Orthopedic Surgery 11/13/10 08/02/22 Supriya Figueroa MD Cardiovascular Disease 08/06/16 Vicki Gilbert DO [address] [facility] [address] [place] [address] Obstetrics and Gynecology 06/09/18 Sarah Becerra, [employer]WOR[employer] EMPLOYEE-STATE COMPTROLLER [address] [place] [address] [address] [place] [address] Nurse Practitioner Nurse Practitioner Adult Health 09/24/20 08/02/22 Uzma Elliott MD [address] [place] [address] [address] [place] [address] Hematology and Oncology 09/24/20 Juan A Marino MD [address] [facility] [address] [place] [address] Physician General Surgery 10/03/20 08/02/22 Daiana Emerson RN [address] [facility] [address] [place] [address] Secret Code ExpertBlock Piler 04/24/21 12/11/23 Daiana Emerson RN [address] [facility] [address] [place] [address] Care Management 04/21/21 11/29/23 [place] [address] [facility] [address] [place] [address] General Surgery 08/05/23 Daryl Fernandez MSW Outpatient Volunteer Services Specialist Care Management 01/13/24 01/13/24 documented as of this encounter
--- OUTSIDE RECORDS SUMMARY | 2024-12-17 01:25 | XMS_ITS | Clinical Summary ---
Author Organization [facility] Address [address] [place] [address] Care Team Providers Care Supervisor Marble Name Role Phone Supriya Figueroa MD Unavailable Vicki Gilbert DO Unavailable [phone] Uzma Elliott MD Unavailable [phone] Pollo Ivy MD Primary Care Provider [phone] Pollo Ivy MD Unavailable [phone] Justo Silveira MD Unavailable [phone] Source Comments [facility],non-owned Affiliates and Associated Physician Practices is amultiple site organization consisting of ambulatory clinics and hospital sitesin [place] and [place]. This disclosure is being madepursuant to the Care Everywhere program and may not contain all information available regarding this patient. Last updated 18.[facility] Allergies Active Allergy Reactions Criticality Noted Date Comments Keflex Rash 10/25/2008 Penicillins Urticaria Medium 10/25/2008 Medications * Be aware that medications may not be up to date on this document. Alwaysverify current medications with the patient. Cranberry 125 MG Take 250 mg by mouth once daily Active acetaminophen-c affeine 500-65 MG tablet Take 2 (two) tablets [...] surgical manipulation of knee joint 04/01/20 19 senior care (current) use of anticoagulants 2018 Status post [...] Type Department Care Team Description 11/01/2024 Refill [facility] Health Weight Management Services [address], [address] [place] [address] Daiana Tomas, DIRECTOR [employer] Refill Request 10/29/2024 8:25 AM ANIMAL WARDEN - 10/29/2024 11:59 PM ANIMAL WARDEN Hospital Encounter [facility] Breast Care [address] [place] [phone] Uzma Elliott MD Discharge Disposition: Home or Self Care 10/29/2024 Orders Only [facility] Health Weight Management Services [address], [address] [place] [address] Ludivina Weathers APRN-CNP Morbid obesity ; Bariatric surgery status; Vitamin deficiency; Vitamin D deficiency; Postsurgical malabsorption 10/22/2024 11:15 AM ANIMAL WARDEN Office Visit [facility] Cancer Care [address] [place] [address] Uzma Elliott MD History of appendiceal cancer (Primary Dx); Encounter to discuss test results 10/22/2024 Orders Only [facility] Cancer Care [address] [place] [address] Uzma Elliott MD 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 Orders Only [facility] CC LAB MP [address] [place] [address] Uzma Elliott MD Mass of colon ; Low grade mucinous neoplasm of appendix; Ovarian failure 10/08/2024 1:40 PM ANIMAL WARDEN Office Visit [facility] Heart & Vascular Care [address], [address] [place] [id number] Supriya Figueroa MD SOB (shortness of breath) (Primary Dx) from Last 3 Months Immunizations Immunization Administration Dates Next Due Eye-Q primary monoval ent 12+ yr 0.3mL Purple cap 07/20/2021,11/26/2020,11/05/2020 INFLUENZA VACCINE 06/01/2018,05/13/2009 INFLUENZA VACCINE, CELL CULT URE, QUADR. (FLUCELVAX QUADRIVALENT; 6MO+) (CCIIV4) 05/15/2022,05/30/2020 INFLUENZA VACCINE, QUADR. (F LUZONE; FLULAVAL; FLUARIX; AFLURIA QUADRIVALENT; 6MO+), 0.5 ML (IIV4) 05/11/2023,07/20/2021,06/21/2019,2015 Family History Medical History Relation Name Comments [...] Recorded Patient Health Questionnaire-2 Score 0 10/22/2024 [facility] - Occupational Stress [...] place to sleep or slept in a penitentiary (including now)? 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 Not on file Not on file Last Filed Vital Signs Vital Sign Reading Time Taken Comments Blood Pressure 128/76 10/22/2024 11:52 AM ANIMAL WARDEN Pulse 63 10/22/2024 11:52 AM ANIMAL WARDEN Temperature 36.1 C (97 F) 10/22/2024 11:52 AM ANIMAL WARDEN Respiratory Rate 16 10/22/2024 11:52 AM ANIMAL WARDEN Oxygen Saturation 100% 10/22/2024 11:52 AM ANIMAL WARDEN Inhaled Oxygen Concentration - - Weight 98.9 kg (218 lb) 10/29/2024 8:55 AM ANIMAL WARDEN Height 160 cm (5' 2.99 ) 10/29/2024 8:55 AM ANIMAL WARDEN Body Mass Index 38.63 10/29/2024 8:55 AM ANIMAL WARDEN Plan of Treatment Upcoming Encounters Date Type Department Care Team (Late st Contact Info) Description 12/31/2024 8:45 AM CDT Office Visit [facility] Health Weight Management Services [address] [place], [place] [id number] Ludivina Weathers, DIRECTOR [employer] [address] [place], [place] [id number] 01/31/2025 10:30 AM CDT Office Visit [facility] Health Medical Group - Endocrinology [address] [place] [address] [address] [place] [address] Chandra Russ MD [address] [place] [address] [address] [place] [address] 04/08/2025 10:00 AM CDT Appointment [facility] Health Imaging Services - CT Scan [address] [place] [address] 04/22/2025 10:40 AM CDT Documentation [facility] Health Cancer Care [address] [place] [address] [address] [place] [address] 04/22/2025 11:00 AM CDT Office Visit [facility] Health Cancer Care [address] [place] [address] [address] [place] [address] Uzma Elliott MD [address] [facility] [address] [place] [address] 06/17/2025 10:10 AM CDT Office Visit [facility] Health Heart & Vascular Care [address], [address] [place] [address] Supriya Figueroa MD [address] [place] [address] Health Maintenance Due Date Last Done Comments [...] 2024 08/06/2024, 08/05/2023, 08/03/2022, Additional history exists COVID-19 VACCINE (8 - Pfizer risk season) 2024 06/07/2024, 07/07/2023, 05/15/2022, Additional history exists PAP with HPV 03/03/2025 03/03/2020 (Done Outside Per Report) COLON MONITORING 07/13/2026 07/13/2024, , 07/09/2024, Additional history exists Colorectal Cancer Screening 07/13/2026 MAMMOGRAM 10/29/2026 10/29/2024, 09/30, 10/08/2022, Additional history exists SCREENING FOR DIABETES 12/07/2027 , 10/22/2024, 07/25/2024, Additional history exists LIPID TESTING 04/13/2029 04/13/2024, 12/01/2022, 07/20/2021, Additional history exists COLONOSCOPY - COLON CA SCREENING 07/13/2034 07/13/2024, 07/13/2024, 07/09/2024, Additional history exists HEPATITIS C SCREENING Completed 06/07/2017 INFLUENZA VACCINE Completed 06/07/2024, , 05/15/2022, Additional [...] of motivation Medical Devices Implanted Type Area V Belt Finisher Device Identifier Shelf Expiration Date Model / Serial / Lot Cmnt Bone Plc R+Ggnta 40gm Lf Grn Implanted:Qty: 2 on 07/16/2016 by Umer Ag MD at [facility] Right: Knee [employer] 12/27/2019 [id number] / / [id number] Ent Kit With Hemaderm Topical Hemostat Implanted:Qty: 1 on 07/16/2016 by Umer Ag MD at [facility] Right: Knee [employer] 02/23/2019 [id number] / / [id number] Tray Tib 71mm As Mx Kn Intlk Cocr 1 Pc Implanted:Qty: 1 on 07/16/2016 by Umer Ag MD at [facility] Right: Knee [employer] 06/08/2026 [id number] / / [id number] Cmpnt Fem Kn Rt Cr Cmnt Prm Vngrd Intlk Implanted:Qty: 1 on 07/16/2016 by Umer Ag MD at [facility] Right: Knee [employer] 05/06/2026 [id number] / / [id number] Cmpnt Ptlr Std 34mm 3 Pg Kn Ser A Implanted:Qty: 1 on 07/16/2016 by Umer Ag MD at [facility] Right: Knee [employer] 02/19/2021 [id number] / / [id number] Cr Tibial Bearing Implanted:Qty: 1 on 07/16/2016 by Umer Ag MD at [facility] Right: Knee [employer] 03/08/2021 [id number] / / [id number] Cmpnt Fem Kn Lt 6 Bicruciate Stab Implanted:Qty: 1 on 01/15/2019 by Joseluis Garrett MD at [facility] Left: Knee [employer] 08/04/2028 [id number] / / [id number] Cmpnt Ptlr Ovl [id number] Gns2 Uhmwpe Kn Implanted:Qty: 1 on 01/15/2019 by Joseluis Garrett MD at [facility] Left: Knee [employer] 10/23/2028 [id number] / / [id number] Journey, Nonporous, Tibial Baseplate, Size 4, Left Implanted:Qty: 1 on 01/15/2019 by Joseluis Garrett MD at [facility] Left: Knee [employer] 10/07/2028 [id number] / / [id number] 13 Mm Journey Ii Bcs, Constrained Articular Insert, Left, Size 3-4 Implanted:Qty: 1 on 01/15/2019 by Joseluis Garrett MD at [facility] Left: Knee [employer] 10/24/2028 [id number] / / [id number] Gilberto Bone Palacos R+G Hi-Visc Implanted:Qty: 1 on 01/15/2019 by Joseluis Garrett MD at [facility] Left: Knee Heraeus Kulzer [employer]elen[employer] 12/26/2021 [id number] / / [id number] Gilberto Bone Palacos R+G Hi-Visc Implanted:Qty: 1 on 01/15/2019 by Joseluis Garrett MD at [facility] Left: Knee Heraeus Kulzer Jelenko 12/26/2021 [id number] / / [id number] Explanted Type Area V Belt Finisher Device Identifier Shelf Expiration Date Model / Serial / Lot Vis Adpt Guide Jii Kit Lt Sz F6/T4 Explanted:Qty: 1 on 01/15/[address] [facility] Left: Knee [employer] 06/03/2019 [id number] / / [id number] Description:Charge Procedures Procedure Name Priority Date/Time Associated Diagnosis Comments IRON + TIBC PANEL Routine 12/06/2024 8:0 1 AM CDT Morbid obesity (HCC) Bariatric surgery status Vitamin deficiency Vitamin D deficiency Postsurgical malabsorption (HCC) FOLATE Routine 12/06/2024 8:01 AM CDT Morbid obesity (HCC) Bariatric surgery status Vitamin deficiency Vitamin D deficiency Postsurgical malabsorption (HCC) ZINC BLOOD Routine 12/06/2024 8:00 AM CDT Morbid obesity (HCC) Bariatric surgery status Vitamin deficiency Vitamin D deficiency Postsurgical malabsorption (HCC) VITAMIN K1 Routine 12/06/2024 8:00 AM CDT Morbid obesity (HCC) Bariatric surgery status Vitamin deficiency Vitamin D deficiency Postsurgical malabsorption (HCC) VITAMIN E Routine 12/06/2024 8:00 AM CDT Morbid obesity (HCC) Bariatric surgery status Vitamin deficiency Vitamin D deficiency Postsurgical malabsorption (HCC) VITAMIN D 25-HYDROXY Routine 12/06/2024 8:00 AM CDT Morbid obesity (HCC) Bariatric surgery status Vitamin deficiency Vitamin D deficiency Postsurgical malabsorption (HCC) VITAMIN B12 Routine 12/06/2024 7:59 AM CDT Morbid obesity (HCC) Bariatric surgery status Vitamin deficiency Vitamin D deficiency Postsurgical malabsorption (HCC) VITAMIN B1 Routine 12/06/2024 7:59 AM CDT Morbid obesity (HCC) Bariatric surgery status Vitamin deficiency Vitamin D deficiency Postsurgical malabsorption (HCC) VITAMIN A Routine 12/06/2024 7:59 AM CDT Morbid obesity (HCC) Bariatric surgery status Vitamin deficiency Vitamin D deficiency Postsurgical malabsorption (HCC) PTH INTACT Routine 12/06/2024 7:59 AM CDT Morbid obesity (HCC) Bariatric surgery status Vitamin deficiency Vitamin D deficiency Postsurgical malabsorption (HCC) MAGNESIUM BLOOD Routine 12/06/2024 7:59 AM CDT Morbid obesity (HCC) Bariatric surgery status Vitamin deficiency Vitamin D deficiency Postsurgical malabsorption (HCC) FERRITIN Routine 12/06/2024 7:59 AM CDT Morbid obesity (HCC) Bariatric surgery status Vitamin deficiency Vitamin D deficiency Postsurgical malabsorption (HCC) COPPER BLOOD Routine 12/06/2024 7:59 AM CDT Morbid obesity (HCC) Bariatric surgery status Vitamin deficiency Vitamin D deficiency Postsurgical malabsorption (HCC) COMPREHENSIVE METABOLIC PANEL Routine 12/06/2024 7:59 AM CDT Morbid obesity (HCC) Bariatric surgery status Vitamin deficiency Vitamin D deficiency Postsurgical malabsorption (HCC) CBC W/O DIFFERENTIAL Routine 12/06/2024 7:59 AM CDT Morbid obesity (HCC) Bariatric surgery status Vitamin deficiency Vitamin D deficiency Postsurgical malabsorption (HCC) MAMMO BILAT SCREENING W ALEXANDRE Routine 10/29/2024 8:56 AM ANIMAL WARDEN Visit for screening mammogram CBC W AUTO DIFFERENTIAL (CANCER CARE) Routine 10/22/2024 10:48 AM ANIMAL WARDEN History of appendiceal cancer CANCER ANTIGEN (CA)125 BLOOD Routine 10/22/2024 10:48 AM ANIMAL WARDEN History of appendiceal cancer CANCER ANTIGEN (CA) 19-9 Routine 10/22/2024 10:48 AM ANIMAL WARDEN History of appendiceal cancer CEA BLOOD Routine 10/22/2024 10:48 AM ANIMAL WARDEN History of appendiceal cancer COMPREHENSIVE METABOLIC PANEL Routine 10/22/2024 10:48 AM ANIMAL WARDEN History of appendiceal cancer EKG 12-LEAD Routine 10/08/2024 SOB (shortness of breath) ENDOSCOPY, COLON, SCREENING Routine 07/09/2024 11:17 AM ANIMAL WARDEN High risk for colon cancer Adenomatous polyp of colon, unspecified part of colon LIPID PROFILE Routine 04/13/2024 11:31 AM CDT Screening for lipid disorders DEXA BONE DENSITY AXIAL SKELETON Routine 10/06/2021 10:42 AM ANIMAL WARDEN Osteopenia, unspecified location HEPATITIS C ANTIBODY Routine 06/07/2017 8:48 AM CDT Need for hepatitis C screening test from Last 3 Months or Most Recently Relevant to Health Maintenance Results * IRON + TIBC PANEL (12/06/2024 8:01 AM CDT) TIBC 345 250 - 450 ug/dL [facility] ACCOUNT BILL UIBC 291 118 - 369 ug/dL [facility] ACCOUNT BILL Iron 54 27 - 139 ug/dL [facility] ACCOUNT BILL Iron Saturation 16 15 - 55 % [facility] ACCOUNT BILL Blood BLOOD SPECIMEN / Unknown 12/06/2024 8:01 AM CDT 12/06/2024 Narrative [facility] ACCOUNT BILL - 12/07/2024 8:07 AM CDT Performed at: - [facility] [id number] Installation And Repair Technician: Bandar Garcia PhD, Phone: [phone] us Ludivina Weathers [facility] - CHEMISTRY ORDE MARGUERITE Final Result Performing Organization Address [facility] Co de Phone Number [facility] ACCOUNT BILL [address] [place] [address] * FOLATE (12/06/2024 8:01 AM CDT) Pathologist [facility] Folate 12.4 >3.0 ng/mL [facility] ACCOUNT BILL Comment: A serum folate concentration of less than 3.1 ng/mL is considered to represent clinical deficiency. Blood BLOOD SPECIMEN / Unknown 12/06/2024 8:01 AM CDT 12/06/2024 Narrative [facility] ACCOUNT BILL - 12/07/2024 8:07 AM CDT Performed at: [facility] [id number] Installation And Repair Technician: Bandar Garcia PhD, Phone: [phone] us Ludivina Weathers [facility] - CHEMISTRY ORDE RABDAQUAN Final Result Performing Organization Address City/[facility]/ZIP Co de Phone Number [facility] ACCOUNT BILL [address] [place] [address] * (ABNORMAL) VITAMIN K1 (12/06/2024 8:00 AM CDT) Pathologist [facility] Vitamin K1 <0.10(L) 0.10 - 2.20 ng/mL [facility] ACCOUNT BILL Blood BLOOD SPECIMEN / Unknown 12/06/2024 8:00 AM CDT 12/06/2024 Narrative [facility] ACCOUNT BILL - 12/15/2024 3:06 AM CDT Test(s) 769474-Mueywgb K1 was developed and its performance characteristics determined by [facility]. It has not been cleared or approved by the Food and Drug Administration. Performed at: 01 - [facility] [address] [id number] Installation And Repair Technician: Skip Mae MD, Phone: [phone] Ludivina Weathers [facility] - CHEMISTRY ORDE RABDAQUAN Final Result Performing Organization Address [facility] de Phone Number [facility] ACCOUNT BILL [address] [place] [address] * ZINC BLOOD (12/06/2024 8:00 AM CDT) Zinc, Plasma or Serum 58 44 - 115 ug/dL [facility] ACCOUNT BILL Comment:Detection Limit = 5 Blood BLOOD SPECIMEN / Unknown 12/06/2024 8:00 AM CDT 12/06/2024 Narrative [facility] ACCOUNT BILL - 12/12/2024 6:06 AM CDT Test(s) 500489-Icel, Plasma or Serum was developed and its performance characteristics determined by [facility]. It has not been cleared or approved by the Food and Drug Administration. Performed at: - [facility] [address] [id number] Installation And Repair Technician: Skip Mae MD, Phone: [phone] us Ludivina Weathers [facility] - CHEMISTRY ORDE MARGUERITE Final Result Performing Organization Address [facility] Co de Phone Number [facility] ACCOUNT BILL [address] [place] [address] * (ABNORMAL) VITAMIN E (12/06/2024 8:00 AM CDT) Vitamin E Alpha Tocopherol 8.3(L) 9.0 - 29.0 mg/L [facility] ACCOUNT BILL Vitamin E Gamma Tocopherol 1.2 0.5 - 4.9 mg/L [facility] ACCOUNT BILL Comment: Reference intervals for alpha and gamma-tocopherol determined from National Health and Nutrition Examination Survey, 2957-5816. Individuals with alpha-tocopherol levels less than 5.0 mg/L are considered vitamin E deficient. Blood BLOOD SPECIMEN / Unknown 12/06/2024 8:00 AM CDT 12/06/2024 Narrative [facility] ACCOUNT BILL - 12/13/2024 6:06 AM CDT Test(s) 801379-Kfmkftm E(Alpha Tocopherol); 984195- Vitamin E(Gamma Tocopherol) was developed and its performance characteristics determined by [facility]. It has not been cleared or approved by the Food and Drug Administration. Performed at: 01 - [facility] [id number] Installation And Repair Technician: Skip Mae MD, Phone: [phone] Ludivina Weathers [facility] - CHEMISTRY [place] Final Result [facility] ACCOUNT BILL [address] [place] [address] * VITAMIN D 25-HYDROXY (12/06/2024 8:00 AM CDT) [facility] Vitamin D, 25 Hydroxy 46.3 30.0 - 100.0 ng/mL [facility] ACCOUNT BILL Comment: Vitamin D deficiency has been defined by the [place] of Medicine and an Endocrine Society practice guideline as a level of serum 25-OH vitamin D less than 20 ng/mL (1,2). The Endocrine Society went on to further define vitamin D insufficiency as a level between 21 and 29 ng/mL (2). 1. IOM ([place] of Medicine). 2010. Dietary reference intakes for calcium and D. [place]: The National Academies Press. 2. Meredith MF, Ericka DALAL, Johnna SHELL, et al. Evaluation, treatment, and prevention of vitamin D deficiency: an Endocrine Society clinical practice guideline. JCEM. 2010; 96(7):1911-30. Blood BLOOD SPECIMEN / Unknown 12/06/2024 8:00 AM CDT 12/06/2024 Narrative [facility] ACCOUNT BILL - 12/07/2024 8:07 AM CDT Performed at: - [address] [id number] Installation And Repair Technician: Bandar Garcia PhD, Phone: [phone] us Ludivina Weathers DIRECTOR FRANCHISE SALESBR[facility] LAB - CHEMISTRY ORDE MARGUERITE Final Result Performing Organization Address City/[facility]/ZIP Co de Phone Number [facility] ACCOUNT BILL [address] [place] [address] * VITAMIN A (12/06/2024 7:59 AM CDT) Vitamin A 34.4 22.0 - 69.5 ug/dL [facility] ACCOUNT BILL Comment: Reference intervals for vitamin A determined from [facility] studies. Individuals with vitamin A less than 20 ug/dL are considered vitamin A deficient and those with serum concentrations less than 10 ug/dL are considered severely deficient. This test was developed and its performance characteristics determined by [facility]. It has not been cleared or approved by the Food and Drug Administration. Blood BLOOD SPECIMEN / Unknown 12/06/2024 7:59 AM CDT 12/06/2024 Narrative [facility] ACCOUNT BILL - 12/11/2024 8:07 PM CDT Performed at: [address] [place] [id number] Installation And Repair Technician: Skip Mae MD, Phone: [phone] us Ludivina Weathers DIRECTOR FRANCHISE SALES[facility] - CHEMISTRY ORDE MARGUERITE Final Result [facility] ACCOUNT BILL [address] [place] [address] * VITAMIN B1 (12/06/2024 7:59 AM CDT) Vitamin B1 Whole Blood 137.1 66.5 - 200.0 nmol/L [facility] ACCOUNT BILL Blood BLOOD SPECIMEN / Unknown 12/06/2024 7:59 AM CDT 12/06/2024 Narrative [facility] ACCOUNT BILL - 12/10/2024 12:07 PM CDT Test(s) 556269-Osh. B1, Whole Blood was developed and its performance characteristics determined by [facility]. It has not been cleared or approved by the Food and Drug Administration. Performed at: [facility] [id number] Installation And Repair Technician: Skip Mae MD, Phone: [phone] Ludivina Weathers [facility] - [facility] Final Result Performing Organization Address [facility] Co de Phone Number [facility] ACCOUNT BILL [address] [place] [address] * PTH INTACT (12/06/2024 7:59 AM CDT) PTH Intact 35 15 - 65 pg/mL [facility] ACCOUNT BILL Blood BLOOD SPECIMEN / Unknown 12/06/2024 7:59 AM CDT 12/06/2024 Narrative [facility] ACCOUNT BILL - 12/07/2024 9:35 AM CDT Performed at: [facility] [id number] Installation And Repair Technician: Bandar Garcia PhD, Phone: [phone] us Ludivina Weathers [facility] - CHEMISTRY ORDE [facility] Final Result Performing Organization Address [facility] Co de Phone Number [facility] ACCOUNT BILL [address] [place] [address] * COPPER BLOOD (12/06/2024 7:59 AM CDT) Copper 99 80 - 158 ug/dL [facility] ACCOUNT BILL Comment:Detection Limit = 5 Blood BLOOD SPECIMEN / Unknown 12/06/2024 7:59 AM CDT 12/06/2024 Narrative [facility] ACCOUNT BILL - 12/12/2024 8:07 PM CDT Test(s) 414817-Uqbvkn, Serum or Plasma was developed and its performance characteristics determined by [employer]. It has not been cleared or approved by the Food and Drug Administration. Performed at: 01 - [facility] [address] [id number] Installation And Repair Technician: Skip Mae MD, Phone: [phone] us Ludivina Weathers [facility] - CHEMISTRY ORDE RABLES Final Result Performing Organization Address City/[facility]/ZIP Co de Phone Number [facility] ACCOUNT BILL [address] [place] [address] * CBC W/O DIFFERENTIAL (12/06/2024 7:59 AM CDT) WBC 4.5 3.4 - 10.8 x10E3/uL [facility] ACCOUNT BILL RBC 3.92 3.77 - 5.28 x10E6/uL [facility] ACCOUNT BILL Hemoglobin 12.0 11.1 - 15.9 g/dL [facility] ACCOUNT BILL Hematocrit 37.2 34.0 - 46.6 % [facility] ACCOUNT BILL MCV 95 79 - 97 fL [facility] ACCOUNT BILL MCH 30.6 26.6 - 33.0 pg [facility] ACCOUNT BILL MCHC 32.3 31.5 - 35.7 g/dL [facility] ACCOUNT BILL RDW 13.1 11.7 - 15.4 % [facility] ACCOUNT BILL Platelet Count 214 150 - 450 x10E3/uL [facility] ACCOUNT BILL Blood BLOOD SPECIMEN / Unknown 12/06/2024 7:59 AM CDT 12/06/2024 Narrative [facility] ACCOUNT BILL - 12/07/2024 6:34 AM CDT Performed at: - [facility] [address] [id number] Installation And Repair Technician: Bandar Garcia PhD, Phone: [phone] us Ludivina Weathers [facility] - HEMATOLOGY ORD ERABLES Final Result Performing Organization Address City/[facility]/ZIP Co de Phone Number [facility] ACCOUNT BILL [address] [place] [address] * (ABNORMAL) COMPREHENSIVE METABOLIC PANEL (12/06/2024 7:59 AM CDT) Only the most recent of2 resultswithin the time period is included. Glucose 91 70 - 99 mg/dL [facility] ACCOUNT BILL BUN 12 8 - 27 mg/dL [facility] ACCOUNT BILL Creatinine 0.97 0.57 - 1.00 mg/dL [facility] ACCOUNT BILL eGFR by CKD-EPI 65 >59 mL/min/1.7 3 [facility] ACCOUNT BILL BUN/Creatinine Ratio 12 12 - 28 [facility] ACCOUNT BILL Sodium 144 134 - 144 mmol/L [facility] ACCOUNT BILL Potassium 4.4 3.5 - 5.2 mmol/L [facility] ACCOUNT BILL Chloride 109(H) 96 - 106 mmol/L [facility] ACCOUNT BILL CO2 22 20 - 29 mmol/L [facility] ACCOUNT BILL Calcium 9.5 8.7 - 10.3 mg/dL [facility] ACCOUNT BILL Protein Total 6.0 6.0 - 8.5 g/dL [facility] ACCOUNT BILL Albumin 4.2 3.9 - 4.9 g/dL [facility] ACCOUNT BILL Globulin Total 1.8 1.5 - 4.5 g/dL [facility] ACCOUNT BILL Bilirubin Total 0.4 0.0 - 1.2 mg/dL [facility] ACCOUNT BILL Alkaline Phosphatase 113 44 - 121 IU/L [facility] ACCOUNT BILL AST 23 0 - 40 IU/L [facility] ACCOUNT BILL ALT 18 0 - 32 IU/L [facility] ACCOUNT BILL Blood BLOOD SPECIMEN / Unknown 12/06/2024 7:59 AM CDT 12/06/2024 Narrative [facility] ACCOUNT BILL - 12/07/2024 7:06 AM CDT Performed at: 01 - [id number] [place], [place] [id number] Installation And Repair Technician: Bandar Gracia PhD, Phone: [phone] us Ludivina Weathers DIRECTOR FRANCHISE SALES-FIREFIGHTER MARINE LAB - CHEMISTRY [place]AV[place] Final Result [facility] ACCOUNT BILL [address] [place] [address] * MAGNESIUM BLOOD (12/06/2024 7:59 AM CDT) [facility] Magnesium 2.1 1.6 - 2.3 mg/dL [facility] ACCOUNT BILL Blood BLOOD SPECIMEN / Unknown 12/06/2024 7:59 AM CDT 12/06/2024 Narrative [facility] ACCOUNT BILL - 12/07/2024 8:07 AM CDT Performed at: - [address] [id number] Installation And Repair Technician: Bandar Garcia PhD, Phone: [phone] us Ludivina Weathers APRN-FIREFIGHTER MARINE LAB - CHEMISTRY ORDE RABDAQUAN Final Result Performing Organization Address City/[facility]/ZIP Co de Phone Number [facility] ACCOUNT BILL [address] [place] [address] * (ABNORMAL) VITAMIN B12 (12/06/2024 7:59 AM CDT) Vitamin B12 1,283(H) 232 - 1,245 pg/mL [facility] ACCOUNT BILL Blood BLOOD SPECIMEN / Unknown 12/06/2024 7:59 AM CDT 12/06/2024 Narrative [facility] ACCOUNT BILL - 12/07/2024 8:07 AM CDT Performed at: - [address] [id number] Installation And Repair Technician: Bandar Garcia PhD, Phone: [phone] us Ludivina Weathers APRN-FIREFIGHTER MARINE LAB - CHEMISTRY ORDE RABDAQUAN Final Result Performing Organization Address City/[facility] de Phone Number [facility] ACCOUNT BILL [address] [place] [address] * FERRITIN (12/06/2024 7:59 AM CDT) Ferritin 32 15 - 150 ng/mL [facility] ACCOUNT BILL Blood BLOOD SPECIMEN / Unknown 12/06/2024 7:59 AM CDT 12/06/2024 Narrative [facility] ACCOUNT BILL - 12/07/2024 8:07 AM CDT Performed at: - [address] [id number] Installation And Repair Technician: Bandar Garcia PhD, Phone: [phone] us Ludivina Weathers APRN-FIREFIGHTER MARINE LAB - CHEMISTRY ORDE RABDAQUAN Final Result [facility] [place] [address] [place] [address] * Mammo Bilat Screening W Alexandre (10/29/2024 8:56 AM ANIMAL WARDEN) Anatomical Region Laterality Modality Breast Bilateral Mammography 10/29/2024 11:4 9 AM ANIMAL WARDEN Impressions 10/29/2024 11:50 AM ANIMAL WARDEN IMPRESSION: No mammographic evidence of malignancy. BI-RADS Category 1: Negative Mammogram. Recommendation: Resume routine yearly mammography schedule for women over age 40 or return sooner if clinically indicated. > Interpreting Provider: Basil Solomon MD on 10/29/2024 11:50 AM Narrative 10/29/2024 11:50 AM ANIMAL WARDEN Bilateral mammography. Most recent comparison: 2023. History: Screening mammogram. Technique: Bilateral breasts. Mammography views included: CC and MLO. Images interpreted with CAD. Following current SS protocol, 3D mammographic tomosynthesis images were obtained and reviewed on a dedicated viewing station. FINDINGS: Breast composition: There are scattered areas of fibroglandular density. No suspicious calcifications, masses, or areas of architectural distortion. us Plolo Ivy MD MAMMO ORDERABLES Final Resul t * CBC W AUTO DIFFERENTIAL (CANCER CARE) (10/22/2024 10:48 AM ANIMAL WARDEN) WBC 4.4 4.4 - 10.7 x10E9/L 10/22/2024 11:06 AM ANIMAL WARDEN [facility] Neutrophils % 46.8 44.0 - 73.0 % 10/22/2024 11:06 AM ANIMAL WARDEN [facility] Lymphocytes % 41.4 20.0 - 43.0 % 10/22/2024 11:06 AM ANIMAL WARDEN [facility] Monocytes % 10.0 5.0 - 13.0 % 10/22/2024 11:06 AM ANIMAL WARDEN [facility] Eosinophils % 1.1 0.0 - 6.0 % 10/22/2024 11:06 AM ANIMAL WARDEN [facility] Basophils % 0.7 0.0 - 2.0 % 10/22/2024 11:06 AM ANIMAL WARDEN [facility] Neutrophil Absolute 2.06 2.01 - 7.14 x10E9/L 10/22/2024 11:06 AM ANIMAL WARDEN [facility] Lymphocytes Absolute 1.82 1.07 - 3.94 x10E9/L 10/22/2024 11:06 AM ANIMAL WARDEN [facility] Monocytes Absolute 0.44 0.26 - 1.07 x10E9/L 10/22/2024 11:06 AM ANIMAL WARDEN [facility] Eosinophils Absolute 0.05 0 - 0.47 x10E9/L 10/22/2024 11:06 AM ANIMAL WARDEN [facility] Basophils Absolute 0.03 0 - 0.08 x10E9/L 10/22/2024 11:06 AM ANIMAL WARDEN [facility] RBC 4.07 3.80 - 5.20 x10E12/L 10/22/2024 11:06 AM ANIMAL WARDEN [facility] Hemoglobin 12.6 12.0 - 15.6 gm/dL 10/22/2024 11:06 AM ANIMAL WARDEN [facility] Hematocrit 38.6 35.9 - 45.5 % 10/22/2024 11:06 AM ANIMAL WARDEN [facility] MCV 94.8 80.7 - 98.3 fl 10/22/2024 11:06 AM ANIMAL WARDEN [facility] MCH 31.0 26.7 - 34.0 pg 10/22/2024 11:06 AM ANIMAL WARDEN [facility] MCHC 32.6 30.8 - 35.9 gm/dL 10/22/2024 11:06 AM ANIMAL WARDEN [facility] RDW-CV 13.8 12.1 - 14.9 % 10/22/2024 11:06 AM ANIMAL WARDEN [facility] Platelet Count 233 153 - 416 x10E9/L 10/22/2024 11:06 AM ANIMAL WARDEN [facility] MPV 10.5 9.4 - 12.9 fl 10/22/2024 11:06 AM ANIMAL WARDEN [facility] Blood BLOOD SPECIMEN / Unknown 10/22/2024 10:48 AM ANIMAL WARDEN 10/22/2024 10:48 AM ANIMAL WARDEN Uzma Elliott MD LAB - HEMATOLOGY ORDERABLES Final Result [facility] [address] * CANCER ANTIGEN (CA) 19-9 (10/22/2024 10:48 AM ANIMAL WARDEN) CA 19-9 11 0 - 35 U/mL [facility] ACCOUNT BILL Comment: [facility] Electrochemiluminescence Immunoassay (ECLIA) Values obtained with different assay methods or kits cannot be used interchangeably. Results cannot be interpreted as absolute evidence of the presence or absence of malignant disease. Blood BLOOD SPECIMEN / Unknown 10/22/2024 10:48 AM ANIMAL WARDEN 10/22/2024 Comment:Blood Release to [facility] Narrative [facility] ACCOUNT BILL - 10/23/2024 1:09 PM ANIMAL WARDEN Performed at: [address] [place] [id number] Installation And Repair Technician: Bandar Garcia PhD, Phone: [phone] Uzma Elliott MD LAB - CHEMISTRY ORDERABLES Final Result Performing Organization Address City/[facility]/ZIP Co de Phone Number [facility] ACCOUNT BILL [address] [place] [address] * CANCER ANTIGEN (CA)125 BLOOD (10/22/2024 10:48 AM ANIMAL WARDEN) CA 125 6.9 0.0 - 38.1 U/mL [facility] ACCOUNT BILL Comment: [facility] Electrochemiluminescence Immunoassay (ECLIA) Values obtained with different assay methods or kits cannot be used interchangeably. Results cannot be interpreted as absolute evidence of the presence or absence of malignant disease. Blood BLOOD SPECIMEN / Unknown 10/22/2024 10:48 AM ANIMAL WARDEN 10/22/2024 Comment:Blood Release to pat i Narrative [facility] ACCOUNT BILL - 10/23/2024 1:09 PM ANIMAL WARDEN Performed at: [facility] [id number] Installation And Repair Technician: Bandar Garcia PhD, Phone: [phone] Uzma Elliott MD LAB - CHEMISTRY ORDERABLES Final Result Performing Organization Address [facility] Co de Phone Number [facility] ACCOUNT BILL [address] [place] [address] * CEA BLOOD (10/22/2024 10:48 AM ANIMAL WARDEN) CEA 1.8 0.0 - 4.7 ng/mL [facility] ACCOUNT BILL Comment: Nonsmokers <3.9 Smokers <5.6 [facility] Electrochemiluminescence Immunoassay (ECLIA) Values obtained with different assay methods or kits cannot be used interchangeably. Results cannot be interpreted as absolute evidence of the presence or absence of malignant disease. Blood BLOOD SPECIMEN / Unknown 10/22/2024 10:48 AM ANIMAL WARDEN 10/22/2024 Comment:Blood Release to rock Ware [facility] ACCOUNT BILL - 10/23/2024 1:09 PM ANIMAL WARDEN Performed at: 01 - [facility] [id number] Installation And Repair Technician: Bandar Garcia PhD, Phone: [phone] us Uzma Elliott MD LAB - CHEMISTRY ORDERABLES Final Result Performing Organization Address [facility] Co de Phone Number [facility] ACCOUNT BILL [address] [place] [address] * EKG 12-LEAD (10/08/2024) us Supriya Figueroa MD ECG ORDERABLES Final Result Performing Organization Address [facility] Co de Phone Number [facility]ULT SCAN * ENDOSCOPY, COLON, SCREENING (07/09/2024 11:17 AM ANIMAL WARDEN) Report Endoscopy POC _ Patient Name: Caryn Last Procedure Date: 07/09/2024 11:17 AM Date of : 1960 Admit Type: Outpatient Age: 64 Gender: Female Attending MD: Patel Augustin MD, [id number] _ Procedure: Colonoscopy Indications: High risk colon [...] the patient. Procedure Code(s): --- Professional --- 40888, Colonoscopy, flexible; with removal of tumor(s), polyp(s), or other lesion(s) by snare technique 26735, 59, Colonoscopy, flexible; with biopsy, single or multiple --- Technical --- 81045, Colonoscopy, flexible; with removal of tumor(s), polyp(s), or other lesion(s) by snare technique 14465, 59, Colonoscopy, flexible; with biopsy, single or [...] flexure or splenic flexure) CPT copyright 2020 [employer]. All rights reserved. The codes documented in this report are preliminary and upon electric motors salesperson review may be revised to meet current compliance requirements. Patel Augustin MD 07/09/2024 11:50:24 AM This report has been signed electronically. Number of Addenda: 0 Note Initiated On: 07/09/2024 11:17 AM Procedure Date: 07/09/2024 11:17:16 AM Scope Withdrawal Time: 0 hours 17 minutes 37 seconds [facility] ENDOSCOPY 07/09/2024 11:1 7 AM ANIMAL WARDEN Daniela Benton DIRECTOR FRANCHISE SALES-FIREFIGHTER MARINE GI PROCEDURE ORDERABLES Edited Result - Final [facility] ENDOSCOPY * (ABNORMAL) LIPID PROFILE (04/13/2024 11:31 [...] Resulting Agency Comment [facility] [address] [facility] [id number] us Supriya Figueroa MD LAB - CHEMISTRY ORDERABLES Final Result [facility] ACCOUNT BILL [address] [place] [address] * DEXA BONE DENSITY AXIAL SKELETON (10/06/2021 10:42 AM ANIMAL WARDEN) Anatomical Region Laterality Modality Mammography 10/06/2021 11:0 1 AM ANIMAL WARDEN Narrative 10/06/2021 11:14 AM ANIMAL WARDEN Bone density study (DEXA): HISTORY: Other specified disorders of bone density and structure, unspecified site, postmenopausal female EXAM LOCATION: [facility] COMPARISON: 2016 LUMBAR SPINE (L1-L4): Bone [...] and -2.5 Osteoporosis = -2.5 and below [facility]: Hologic Horizon A [facility]: PENRITHy [facility] [address]: PENRITHy [facility]: Hologic Brixey C [facility] Outpatient: Hologic Horizon A *Reading Radiologist: Mahesh Prasad on 10/06/2021 at 11:14 AM Procedure Note Mahesh Prasad MD - 10/06/2021 Bone density study (DEXA): HISTORY: Other specified disorders of bone density and structure, unspecified site, postmenopausal female EXAM LOCATION: [facility] COMPARISON: 2017 LUMBAR SPINE (L1-L4): Bone [...] and -2.5 Osteoporosis = -2.5 and below [facility]: Cynergen Horizon A [facility]: Zoodles [facility]: Zoodles [facility]: Hologic Brixey C [facility] Outpatient: Hologic Horizon A *Reading Radiologist: Mahesh Prasad on 10/06/2021 at 11:14 AM us Pollo Ivy MD DEXA ORDERABLES Final Result * HEPATITIS C ANTIBODY (06/07/2017 8:48 AM CDT) Hepatitis C Antibody Non Reactive Non Reactive [facility] ACCOUNT BILL Comment: Non Reactive - Antibodies to Hepatitis C virus (HCV) were no t detected, result does not exclude early acute HCV infection. FASTING Blood BLOOD SPECIMEN / Unknown 06/07/2017 8:48 AM CDT 06/07/2017 Narrative Resulting Agency Comment [facility] [place][note 2] [address] [place] [id number] us Pollo Ivy MD LAB - CHEMISTRY ORDERABLES F inal Result [facility] ACCOUNT BILL [address] [place] [address] from Last 3 Months or Most Recently Relevant to Health Maintenance Insurance [facility] MANAGED MEDICARE ADV Advance Directives Documents on File Type Date Recorded Patient Banquet Coordinator Expl anation Adv Directive/Living Will/POA 07/01/2010 1:27 [...] 1:52 PM 07/19/2016 12:50 PM Care Teams Supervisor Marble Relationship Specialty Start Date End Date Pollo Ivy MD [address] [facility] [address] [place] [address] PCP - General Family Medicine 10/03/20 Pollo Ivy MD [address] [facility] [address] [place] [address] PCP - [facility] 09/29/21 Supriya Figueroa MD Cardiovascular Disease 08/06/16 Vicki Gilbert DO [address] [place] [address] [address] [place] [address] Obstetrics and Gynecology 06/09/18 Uzma Elliott MD [address] [facility] [address] [place] [address] Hematology and Oncology 09/24/20 [place] [address] [facility] [address] [place] [address] General Surgery 08/05/23
--- OUTSIDE RECORDS SUMMARY | 2024-12-17 01:25 | XMS_ITS | Encounter Summary ---
Author Organization [facility] Address [address] [facility] [place] [address] Care Team Providers Care Uncrater Name Role Phone Umer Ag MD Unavailable [phone] Serg Herb Primary Care Provider [phone] Rebecca Greenwood DO Primary Care Provi gabriella Pollo Ivy MD Primary Care Provider [phone] Deborah Ag PA-C Primary Care Provider [phone] Supriya Figueroa MD Unavailable Vicki Gilbert DO Unavailable [phone] Ludivina Weathers GAS PLUMBING INSPECTOR-METHOD CONSULTANT Unavailable [phone] Ludivina Weathers GAS PLUMBING INSPECTOR-METHOD CONSULTANT Unavailable Sarah Becerra GAS PLUMBING INSPECTOR-METHOD CONSULTANT Unavailable [phone] Uzma Elliott MD Unavailable [phone] Pollo Ivy MD Primary Care Provider [phone] Juan A Marino MD Unavailable [phone] Pollo Ivy MD Unavailable [phone] Daiana Emerson RN Unavailable [phone] Pollo Ivy MD Unavailable [phone] Daiana Emerson RN Unavailable [phone] Justo Silveira MD Unavailable Daryl Fernandez PLASTER HELPER Unavailable Ludivina Weathers GAS PLUMBING INSPECTOR-METHOD CONSULTANT Unavailable [phone] Ludivina Weathers GAS PLUMBING INSPECTOR-METHOD CONSULTANT Unavailable [phone] Pollo Ivy MD Unavailable Pollo Ivy MD Unavailable Encounter Details Date Type Department Care Team (Late Contact Info) Description 06/15/2010 [facility] Ricco Portillo MD [address] [address] Social History Tobacco Use Types Packs/Day Years Used Date Smoking Tobacco: Never Alcohol Use Standard Drinks/Week Comments No 0 (1 standard drink = 0.6 oz pur e alcohol) Comments No Sex and Gender Information Value Date Recorded Sex Assigned at Female 09/30/2022 9:17 AM TOLL COLLECTOR SUPERVISOR Legal Sex Female 4:21 AM TOLL COLLECTOR SUPERVISOR Gender Identity Female 07/11/2019 4:06 PM TOLL COLLECTOR SUPERVISOR Sexual Orientation Not on file 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 Health Medical [facility] - Endocrinology [address] [place] [address] [address] [place] [address] Chandra Russ MD [address] [facility] [address] [place] [address] 04/08/2025 10:00 AM CDT Appointment [facility] Health Imaging Services - CT Scan [address] [place] [address] 04/22/2025 10:40 AM CDT Documentation [facility] Health Cancer Care [address] [place] [address] [address] [place] [address] 04/22/2025 11:00 AM CDT Office Visit [facility] Health Cancer Care [address] [place] [address] Uzma Elliott MD [address] [place] [address] [address] [place] [address] 06/17/2025 10:10 AM CDT Office Visit [facility] Health Heart & Vascular Care [address], [address] [place] [address] Supriya Figueroa MD [address] [facility] [address] [place] [address] documented as of this encounter Visit Diagnoses Not on filedocumented in this encounter Care Teams Uncrater Relationship Specialty Start Date End Date Herb Ulrich DO [address] [place] [address] PCP - General Family Medicine 02/07/12 02/07/12 Rebecca Greenwood DO [address] [address] PCP - General 02/08/12 02/15/12 Pollo Ivy MD [address] [place] [address] [address] [place] [address] PCP - General Family Medicine 06/21/16 07/15/16 Deborah Ag PA-C [address] [place] [address] [address] [place] [address] PCP - General Internal Medicine 07/16/16 08/05/16 Ludivina Weathesr APRN-METHOD CONSULTANT [address] [place] [address] PCP - Attributed-Exclusive Choice 02/26/19 08/28/19 Ludivina Weathers APRN-METHOD CONSULTANT [address] [place] [address] PCP - Attributed-[employer] 03/29/20 07/28/20 Pollo Ivy MD [address] [facility] [address] [place] [address] PCP - General Family Medicine 10/03/20 Pollo Ivy MD [address] [facility] [address] [place] [address] PCP - Attributed-[employer] 07/29/20 10/15/21 Pollo Ivy MD [address] [facility] [address] [place] [address] PCP - Attributed-[facility] [place] 09/29/21 Ludivina Weathers APRN-METHOD CONSULTANT [address] [place], [place] [id number] PCP - Attributed-Exclusive Choice 04/20/18 07/18/18 Ludivina Weathers APRN-METHOD CONSULTANT [address] [place] [address] PCP - Attributed-Exclusive Choice 10/05/18 01/04/19 [place] [address] [place] [address] [address] [place] [address] PCP - Attributed-Exclusive Choice 07/19/18 10/04/18 Pollo Ivy MD [address] [place] [address] [address] [place] [address] PCP - Attributed-Exclusive Choice 01/05/19 02/25/19 Umer Ag MD Orthopedic Surgery 11/13/10 08/02/22 Supriya Figueroa MD [address] [place] [address] [address] [place] [address] Cardiovascular Disease 08/06/16 Vicki Gilbert DO [address] [facility] [address] [place] [address] Obstetrics and Gynecology 06/09/18 Sarah Becerra APRN-METHOD CONSULTANT [address] [place] [address] [address] [place] [address] Nurse Practitioner Nurse Practitioner Adult Health 09/24/20 08/02/22 Uzma Elliott MD [address] [place] [address] [address] [place] [address] Hematology and Oncology 09/24/20 Juan A Marino MD [address] [place] [address] [address] [place] [address] Physician General Surgery 10/03/20 08/02/22 Daiana Emerson RN [address] [facility] [address] [place] [address] Cotton Machine OperatorAgile Business Analyst 04/24/21 12/11/23 Daiana Emerson RN [address] [facility] [address] [place] [address] Care Management 04/21/21 11/29/23 [place] [address] [address] General Surgery 08/05/23 Daryl Fernandez MSW Outpatient Health Type Technician Care Management 01/13/24 01/13/24 documented as of this encounter
--- OUTSIDE RECORDS SUMMARY | 2024-12-17 01:25 | XMS_ITS | Encounter Summary ---
Author Organization [facility] Address [address] [facility] [place] [address] Care Team Providers Care Cork Molder Name Role Phone Umer Ag MD Unavailable [phone] Serg Herb Primary Care Provider Rebecca Greenwood DO Primary Care Provi gabriella Pollo Ivy MD Primary Care Provider [phone] Deborah Ag PA-C Primary Care Provider [phone] Supriya Figueroa MD Unavailable Vicki Gilbert DO Unavailable [phone] Ludivina Weathers PROJECT ASST-SAMPLE DISPLAY PREPARER Unavailable [phone] Ludivina Weathers PROJECT ASST-SAMPLE DISPLAY PREPARER Unavailable Sarah Becerra PROJECT ASST-SAMPLE DISPLAY PREPARER Unavailable [phone] Uzma Elliott MD Unavailable [phone] Pollo Ivy MD Primary Care Provider [phone] Juan A Marino MD Unavailable [phone] Pollo Ivy MD Unavailable [phone] Daiana Emerson RN Unavailable [phone] Pollo Ivy MD Unavailable [phone] Daiana Emerson RN Unavailable [phone] Justo Silveira MD Unavailable Daryl Fernandez ANCHORMAN Unavailable Ludivina Weathers PROJECT ASST-SAMPLE DISPLAY PREPARER Unavailable [phone] Ludivina Weathers PROJECT ASST-SAMPLE DISPLAY PREPARER Unavailable [phone] Pollo Ivy MD Unavailable [phone] Pollo Ivy MD Unavailable [phone] Encounter Details Date Type Department Care Team (Late Contact Info) Description 04/01/2011 [facility] Ludivina Weathers APRN-SAMPLE DISPLAY PREPARER [address] [place] [address] Social History Tobacco Use Types Packs/Day Years Used Date Smoking Tobacco: Never Alcohol Use Standard Drinks/Week Comments No 0 (1 standard drink = 0.6 oz pur e alcohol) Comments No Sex and Gender Information Value Date Recorded Sex Assigned at Female 09/30/2022 9:17 AM SALES REPRESENTATIVE TRAINEE Legal Sex Female 4:21 AM SALES REPRESENTATIVE TRAINEE Gender Identity Female 07/11/2019 4:06 PM SALES REPRESENTATIVE TRAINEE Sexual Orientation Not on file 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 as of this encounter Plan of Treatment Upcoming Encounters Date Type Department Care Team (Late Contact Info) Description 12/31/2024 8:45 AM CDT Office Visit [facility] Health Weight Management Services [address] [facility], [address] [place] [address] Ludivina Weathers APRN-SAMPLE DISPLAY PREPARER [address] [place] [address] 01/31/2025 10:30 AM CDT Office Visit [facility] Health Medical Group - Endocrinology [address] [place] [address] [address] [place] [address] Chandra Russ MD [address] [facility] [address] [place] [address] 04/08/2025 10:00 AM CDT Appointment [facility] Health Imaging Services - CT Scan [address] [place] [address] 04/22/2025 10:40 AM CDT Documentation [facility] Health Cancer Care [address] [place] [address] [address] [place] [address] 04/22/2025 11:00 AM CDT Office Visit [facility] Health Cancer Care [address] [place] [address] Uzma Elliott MD [address] [place] [address] 180 [place] [address] 06/17/2025 10:10 AM CDT Office Visit [facility] Health Heart & Vascular Care [address] [facility], [address] [place] [address] Supriya Figueroa MD [address] [facility] [address] [facility] [address] [place] [address] documented as of this encounter Visit Diagnoses Not on filedocumented in this encounter Care Teams Cork Molder Relationship Specialty Start Date End Date Herb Ulrich DO [address] [place] [address] PCP - General Family Medicine 02/07/12 02/07/12 Rebecca Greenwood DO [address] [address] PCP - General 02/08/12 02/15/12 Pollo Ivy MD [address] [place] [address] 200 [place] [address] PCP - General Family Medicine 06/21/16 07/15/16 Deborah Ag, PA-C [address] [place] [address] [address] [place] [address] PCP - General Internal Medicine 07/16/16 08/05/16 Ludivina Weathers APRN-SAMPLE DISPLAY PREPARER [address] [place] [address] PCP - Attributed-Exclusive Choice 02/26/19 08/28/19 Ludivina Weathers APRN-SAMPLE DISPLAY PREPARER [address] [place] [address] PCP - Attributed-[place] [employer] 03/29/20 07/28/20 Pollo Ivy MD [address] [facility] 200 [place] [address] PCP - General Family Medicine 10/03/20 Pollo Ivy MD [address] [facility] 200 [place] [address] PCP - Attributed-[place] Commercial 07/29/20 10/15/21 Pollo Ivy MD [address] [facility] 200 [place] [address] PCP - Attributed-[facility] [place] 09/29/21 Ludivina Weathers APRN-SAMPLE DISPLAY PREPARER [address] [place], [place] [address] PCP - Attributed-Exclusive Choice 04/20/18 07/18/18 Ludivina Weathers APRN-SAMPLE DISPLAY PREPARER [address] [place] [address] PCP - Attributed-Exclusive Choice 10/05/18 01/04/19 [place] [address] [place] [address] 200 [place] [address] PCP - Attributed-Exclusive Choice 07/19/18 10/04/18 Pollo Ivy MD [address] [place] [address] 200 [place] [address] PCP - Attributed-Exclusive Choice 01/05/19 02/25/19 Umer Ag MD Orthopedic Surgery 11/13/10 08/02/22 Supriya Figueroa MD [address] [place] [address] 200 [place] [address] Cardiovascular Disease 08/06/16 Vicki Gilbert DO [address] [facility] [address] [place] [address] Obstetrics and Gynecology 06/09/18 Sarah Becerra APRN-SAMPLE DISPLAY PREPARER [address] [place] [address] [address] [place] [address] Nurse Practitioner Nurse Practitioner Adult Health 09/24/20 08/02/22 Uzma Elliott MD [address] [place] [address] [address] [place] [address] Hematology and Oncology 09/24/20 Juan A Marino MD [address] [place] [address] [address] [place] [address] Physician General Surgery 10/03/20 08/02/22 Daiana Emerson RN [address] [facility] 200 [place] [address] Er RegistrarPowder Press Operator 04/24/21 12/11/23 Daiana Emerson RN [address] [facility] 200 [place] [address] Care Management 04/21/21 11/29/23 [place] [address] [address] General Surgery 08/05/23 Daryl Fernandez MSW Outpatient Battery Plate Remover Care Management 01/13/24 01/13/24 documented as of this encounter
--- OUTSIDE RECORDS SUMMARY | 2024-12-17 01:25 | XMS_ITS | Encounter Summary ---
Author Organization [facility] Address [address] [facility] [place] [address] Care Team Providers Care Bleacher Sulfite Pulp Name Role Phone Umer Ag MD Unavailable [phone] Serg Herb Primary Care Provider Rebecca Greenwood DO Primary Care Provi gabriella Pollo Ivy MD Primary Care Provider [phone] Deborah Ag PA-C Primary Care Provider [phone] Supriya Figueroa MD Unavailable Vicki Gilbert DO Unavailable [phone] Ludivina Weathers STERILE PROCESSING TECH-TECHNICAL RECRUITER Unavailable [phone] Ludivina Weathers STERILE PROCESSING TECH-TECHNICAL RECRUITER Unavailable Sarah Becerra STERILE PROCESSING TECH-TECHNICAL RECRUITER Unavailable [phone] Uzma Elliott MD Unavailable [phone] Pollo Ivy MD Primary Care Provider [phone] Juan A Marino MD Unavailable [phone] Pollo Ivy MD Unavailable [phone] Daiana Emerson RN Unavailable [phone] Pollo Ivy MD Unavailable [phone] Daiana Emerson RN Unavailable [phone] Justo Silveira MD Unavailable Daryl Fernandez SNATH HANDLE ASSEMBLER Unavailable Ludivina Weathers STERILE PROCESSING TECH-TECHNICAL RECRUITER Unavailable [phone] Ludivina Weathers STERILE PROCESSING TECH-TECHNICAL RECRUITER Unavailable [phone] Pollo Ivy MD Unavailable [phone] Pollo Ivy MD Unavailable [phone] Encounter Details Date Type Department Care Team (Late Contact Info) Description 06/15/2010 [facility] Ricco Portillo MD [address] [address] Social History Tobacco Use Types Packs/Day Years Used Date Smoking Tobacco: Never Alcohol Use Standard Drinks/Week Comments No 0 (1 standard drink = 0.6 oz pur e alcohol) Comments No Sex and Gender Information Value Date Recorded Sex Assigned at Female 09/30/2022 9:17 AM MENTAL TESTER Legal Sex Female 4:21 AM MENTAL TESTER Gender Identity Female 07/11/2019 4:06 PM MENTAL TESTER Sexual Orientation Not on file 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 [address] [place] [address] Ludivina Weathers, STERILE PROCESSING TECH-TECHNICAL RECRUITER [address] [facility] [address] [place] [address] 01/31/2025 10:30 AM CDT Office Visit [facility] Health Medical Group - Endocrinology [address] [place] [address] [address] [place] [address] Chandra Russ MD [address] [facility] [address] [place] [address] 04/08/2025 10:00 AM CDT Appointment [facility] Health Imaging Services - CT Scan [address] [place] [address] 04/22/2025 10:40 AM CDT Documentation [facility] Health Cancer Care [address] [place] [address] 180 [place] [address] 04/22/2025 11:00 AM CDT Office Visit [facility] Health Cancer Care [address] [place] [address] Uzma Elliott MD [address] [place] [address] 180 [place] [address] 06/17/2025 10:10 AM CDT Office Visit [facility] Health Heart & Vascular Care [address] [facility] [address], [address] [place] [address] Supriya Figueroa MD [address] [facility] 401 [place] [address] documented as of this encounter Visit Diagnoses Not on filedocumented in this encounter Care Teams Bleacher Sulfite Pulp Relationship Specialty Start Date End Date Herb Ulrich DO [address] [place] [address] PCP - General Family Medicine 02/07/12 02/07/12 Rebecca Greenwood DO [address] [address] PCP - General 02/08/12 02/15/12 Pollo Ivy MD [address] [place] [address] 200 [place] [address] PCP - General Family Medicine 06/21/16 07/15/16 Deborah Ag PA-C [address] [place] [address] 200 [place] [address] PCP - General Internal Medicine 07/16/16 08/05/16 Ludivina Weathers APRN-TECHNICAL RECRUITER [address] [place] [address] PCP - Attributed-Exclusive Choice 02/26/19 08/28/19 Ludivina Weathers APRN-TECHNICAL RECRUITER [address] [place] [address] PCP - Attributed-[place] [employer] 03/29/20 07/28/20 Pollo Ivy MD [address] [facility] 200 [place] [address] PCP - General Family Medicine 10/03/20 Pollo Ivy MD [address] [facility] 200 [place] [address] PCP - Attributed-[place] [employer] 07/29/20 10/15/21 Pollo Ivy MD [address] [facility] 200 [place] [address] PCP - Attributed-[facility] [place] 09/29/21 Ludivina Weathers APRN-TECHNICAL RECRUITER [address] [place], [place] [address] PCP - Attributed-Exclusive Choice 04/20/18 07/18/18 Ludivina Weathers APRN-TECHNICAL RECRUITER [address] [place] [address] PCP - Attributed-Exclusive Choice 10/05/18 01/04/19 [place] [address] [place] [address] 200 [place] [address] PCP - Attributed-Exclusive Choice 07/19/18 10/04/18 Pollo Ivy MD [address] [place] [address] 200 [place] [address] PCP - Attributed-Exclusive Choice 01/05/19 02/25/19 Umer Ag MD Orthopedic Surgery 11/13/10 08/02/22 Supriya Figueroa MD [address] [place] [address] 200 [place] [address] Cardiovascular Disease 08/06/16 Vicki Gilbert DO [address] [facility] [address] [place] [address] Obstetrics and Gynecology 06/09/18 Sarah Becerra APRN-TECHNICAL RECRUITER [address] [place] [address] [address] [place] [address] Nurse Practitioner Nurse Practitioner Adult Health 09/24/20 08/02/22 Uzma Elliott MD [address] [place] [address] [address] [place] [address] Hematology and Oncology 09/24/20 Juan A Marino MD [address] [place] [address] [address] [place] [address] Physician General Surgery 10/03/20 08/02/22 Daiana Emerson RN [address] [facility] 200 [place] [address] Ground Source Heat Pump TechnicianApplication Support 04/24/21 12/11/23 Daiana Emerson RN [address] [facility] 200 [place] [address] Care Management 04/21/21 11/29/23 [place] [address] [address] General Surgery 08/05/23 Daryl Fernandez MSW Outpatient Lead Programmer Care Management 01/13/24 01/13/24 documented as of this encounter
[2024-12-17] MEDS: ACETAMINOPHEN 500 MG TABLET 1000 MG PO (06:25)
[2024-12-17] MEDS: LACTATED RINGERS 1,000 ML 30 ML IV CONT ×3 (06:55→11:00)
[2024-12-17] MEDS: VANCOMYCIN 1,500 MG/NS 500 ML BAG 250 MG IVPB (07:00)
[2024-12-17] MEDS: TRANEXAMIC ACID 1,000MG/ISO100 1,000 MG/100 ML BAG 200 MG IVPB (07:00)
--- NOTE | 2024-12-17 07:05 | WPDANESEPPF ---
Anes - Initial Pre Proc Eval Procedure: Operation Date: 12/17/24 07:30 Proposed Procedures p Right Total Hip Arthroplasty - Umer Ag MD Date/Time: 12/17/24 07:05 Surgeon: Umer Ag MD Pre Op Diagnosis: OA right hip Patient Data Age: 64 Gender: F Height: 1.68 m Weight: 96.2 kg Last Vital Signs Temp 36.8 C 12/17/24 06:05 Pulse 70 12/17/24 06:05 Resp 16 12/17/24 06:05 BP 134/62 12/17/24 06:05 Pulse Ox 100 12/17/24 06:05 O2 Del Method Room Air 12/17/24 06:05 Allergies Allergy/AdvReac Type Severity Reaction Status Date / Time cephalexin (From Keflex) Allergy Intermediate Rash Verified 12/17/24 06:50 Penicillins Allergy Intermediate Hives Verified 12/17/24 06:50 Home Medications ?Medication ?Instructions ?Recorded ?Confirmed ?Type apixaban 5 mg tablet (Eliquis) 5 mg PO Q12H 04/12/24 12/17/24 History biotin 5,000 mcg-choline 100 1 cap PO DAILY 04/12/24 12/17/24 History mg-silicon 5 mg capsule cholecalciferol (vitamin D3) 50 50 mcg PO DAILY 04/12/24 12/17/24 History mcg (2,000 unit) capsule (Vitamin D3) dronedarone 400 mg tablet (Multaq) 400 mg PO BID 04/12/24 12/17/24 History potassium chloride 20 mEq 20 meq PO DAILY 04/12/24 12/17/24 History tablet,extended release(part/cryst) torsemide 10 mg tablet 10 mg PO DAILY 04/12/24 12/17/24 History acetaminophen 650 mg 1,300 mg PO Q8H PRN pain 12/05/24 12/05/24 History tablet,extended release (Tylenol Arthritis Pain) calcium carbonate 500 mg PO TID 12/05/24 12/17/24 History cranberry 500 mg capsule 1,000 mg PO DAILY 12/05/24 12/17/24 History wpshngnx-acxujsoq-vwaw 45 mg-folic 1 cap PO DAILY 12/05/24 12/17/24 History acid 800 mcg-vit K 120 mcg capsule (Bariatric Multivitamins) phytonadione (vitamin K1) 5 mg 5 mg PO DAILY 12/05/24 12/17/24 History tablet Patient hx anesthesia problems: none Family hx anesthesia problems: none Results Review: All pre-operative results and documents have been reviewed as part of the pre-operative evaluation. [facility] Past Medical History Medical History Appendiceal carcinoid tumor Surgical History Surgical History (Updated 12/17/24 @ 07:06 by Ricco Hall MD) H/O cardiac radiofrequency ablation H/O colectomy Gastric bypass status for obesity Family History Family History (Updated 08/30/24 @ 07:50 by Sharmila Willett CMA) Sibling Cerebrovascular accident History of blood clots Other Hypertension Social History Social History Smoking status: Never smoker Second hand tobacco smoke exposure: No Alcohol intake: never Substance use: never Substance use type: does not use Do You Feel Safe in your Home?: Yes Lack of Transportation: No Lack of Food: Never True Current Housing: I Have Housing Concerned About Future Housing: No Difficulty Paying Gas/Electric Bills: No Difficulty Paying for Meds: No Currently Unemployed: No Education: Trade/Vocational Certificate Difficulty w/ Childcare or Family Care: No Living arrangements: with family Additional living arrangements comments: PHI 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 Informed Consent: The patient's anesthetic plan and its attendant risks and benefits were discussed with the patient/family/POA. Questions were solicited and answers provided to the satisfaction of the patient/family/POA.
--- NOTE | 2024-12-17 07:05 | WPDHPUPDATE1 ---
History and Physical Update Update Date/Time: 12/17/24 07:05 History and Physical has been reviewed, including an updated exam of the patient. There are NO changes in the patient's condition. Risks, benefits, and alternatives have been discussed and questions answered. Patient agrees to proceed with procedure.
[2024-12-17] MEDS: CLINDAMYCIN 900 MG/D5W 50 ML 900 MG/50 ML PIGGYBACK 50 MG IVPB (07:34)
[2024-12-17] MEDS: BUPIVACAINE/EPINEPHRINE 0.5% 30 ML VIAL INFILTRATE (08:14)
--- NOTE | 2024-12-17 09:27 | P.OP_ITS ---
Procedure Note - Detailed Date of Procedure 12/17/24 Pre-op Diagnosis Osteoarthritis RIGHT hip Post-op Diagnosis Same Procedure Performed RIGHT Total Hip arthroplasty Surgeon Umer Ag MD Laser Print Operator ADRYAN Anesthesia General Indications Pain and Arthritis Description of Procedure Patient was brought to the operating room #8, and an anesthetic was administered. The patient was placed with the operative Hip up and sterilely prepped and draped in the usual manner. A longitudinal incision was performed. Dissection was carried down to the fascia. A Hardinge type approach was used and the femoral head was dislocated anteriorly. The Femoral head was removed a finger breath above the lesser trochanter. The acetabulum was serially reamed to accept a 52 component. This was impacted into place and secured with 2 25mm screws. A high wall liner was placed. The femur was reamed and broached to accept a 12 component which was impacted into place. A minus 3 head and neck were placed and the hip was put through full range of motion. The hip was noted to be stable. The wounds were then closed in a layered fashion using #5 ethibond, 2 vicryl, 2-0 vicryl and rox. Patient left the operating room in satisfactory condition. Implants Biomet taper lock stem Marcus multi hole cup Estimated Blood Loss 600 Drains No Packing No Pathology None sent Complications No immediate complications Condition Stable Disposition PACU [facility] Billing Surgery - Charge Forward: Surgery Billing (58200 Total Hip)
[2024-12-17] MEDS: HYDROmorphone HCL INJ (*CRX) 1 MG/ML SYR 0.2 MG IV PUSH ×5 (10:30→10:38)
[2024-12-17] MEDS: fentaNYL CITRATE INJ (*CRX) 100 MCG/2 ML VIAL 25 MCG IV PUSH ×4 (11:25→11:31)
--- NOTE | 2024-12-17 11:56 | ADMGEN ---
This patient, Caryn Last, was admitted to Medical Room 260-. Patient/family oriented to hospital policies and general routines including ID bracelet, bed and alarms, visiting hours, pain management, procedures, bathroom and other care routines, personal items, smoking policy, room service/diet, and visiting hours. Information on how to activate the Rapid Response Team has been discussed. Patient/Family are encouraged to report perceived risks to care and to ask questions if they do not understand what they are told or what they should do.
[2024-12-17] MEDS: oxyCODONE/ACETAMINOPHEN (*CRX) 10-325 MG TABLET 1 TAB PO (12:09)
[2024-12-17] MEDS: SODIUM CHLORIDE 0.9% IV 1,000 ML 125 ML IV CONT (12:10)
[2024-12-17] MEDS: ceFAZolin 2 GM/D5W 50 ML 2 GM/50 ML BAG IVPB ×2 (12:15→20:07)
[2024-12-17] MEDS: ONDANSETRON INJ 4 MG/2 ML VIAL IV PUSH (14:33)
--- NOTE | 2024-12-17 14:54 | P.CONIM_ITS ---
Assessment and Plan Assessment and plan (1) Osteoarthritis of right hip: Code(s): M16.11 - Unilateral primary osteoarthritis, right hip Status: Acute Assessment and Plan: * Patient is status post right hip arthroplasty performed by Dr. Ag today * Continue pain control * Continue hip precautions * Continue incentive spirometry * PT and OT ordered * Continue Zofran for postop nausea (2) Afib: Code(s): I48.91 - Unspecified atrial fibrillation Status: Acute Assessment and Plan: Patient has history of pericardial effusion s/p drain in the past and had A fib episode afterwards. * Continue Multaq HPI Date of Consult Consult date: 12/17/24 Requesting Physician: Umer Ag MD Primary Care Provider: Pollo Ivy Consult Narrative Narrative: Caryn Last is a 64 year old female with history of an appendiceal carcinoid tumor status post appendectomy, history of pericardial effusion s/p pericardial drain now on Multaq, AFib, osteoarthritis, kidney stones, goiter who presented to the hospital for elective right total hip arthroplasty with Dr. Ag. She states her pain is well controlled. She does have post operative nausea without vomiting. She denies any fever, chills, nausea, vomiting, diarrhea, abdominal pain, chest pain, or shortness of breath. We were consulted for medical management while inpatient. Review of Systems 2 Review of Systems: All systems reviewed & are unremarkable except as noted in HPI and below PMFSH Past Medical History Medical History (Updated 12/17/24 @ 16:18 by Soraya Cevallos APRN) Pericardial effusion Goiter Afib Osteoarthritis Appendiceal carcinoid tumor Surgical History Surgical History LAP-BAND surgery status Hx of appendectomy H/O cardiac radiofrequency ablation H/O colectomy Gastric bypass status for obesity Family History Family History Sibling Cerebrovascular accident History of blood clots Other Hypertension Social History Social History Smoking status: Never smoker Second hand tobacco smoke exposure: No Alcohol intake: never Substance use: never Substance use type: does not use Do You Feel Safe in your Home?: Yes Lack of Transportation: No Lack of Food: Never True Current Housing: I Have Housing Concerned About Future Housing: No Difficulty Paying Gas/Electric Bills: No Difficulty Paying for Meds: No Currently Unemployed: No Education: Trade/Vocational Certificate Difficulty w/ Childcare or Family Care: No Living arrangements: with family Additional living arrangements comments: PHI 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 Gender identity (if verbalized by the patient): Female Spiritual care concerns: No Meds Home Medications and Allergies Home Medications ?Medication ?Instructions ?Recorded ?Confirmed ?Type apixaban 5 mg tablet (Eliquis) 5 mg PO Q12H 04/12/24 12/17/24 History biotin 5,000 mcg-choline 100 1 cap PO DAILY 04/12/24 12/17/24 History mg-silicon 5 mg capsule cholecalciferol (vitamin D3) 50 50 mcg PO DAILY 04/12/24 12/17/24 History mcg (2,000 unit) capsule (Vitamin D3) dronedarone 400 mg tablet (Multaq) 400 mg PO BID 04/12/24 12/17/24 History potassium chloride 20 mEq 20 meq PO DAILY 04/12/24 12/17/24 History tablet,extended release(part/cryst) torsemide 10 mg tablet 10 mg PO DAILY 04/12/24 12/17/24 History acetaminophen 650 mg 1,300 mg PO Q8H PRN pain 12/05/24 12/05/24 History tablet,extended release (Tylenol Arthritis Pain) calcium carbonate 500 mg PO TID 12/05/24 12/17/24 History cranberry 500 mg capsule 1,000 mg PO DAILY 12/05/24 12/17/24 History wrzbauhm-nydbejut-srbv 45 mg-folic 1 cap PO DAILY 12/05/24 12/17/24 History acid 800 mcg-vit K 120 mcg capsule (Bariatric Multivitamins) phytonadione (vitamin K1) 5 mg 5 mg PO DAILY 12/05/24 12/17/24 History tablet Allergies Allergy/AdvReac Type Severity Reaction Status Date / Time cephalexin (From Keflex) Allergy Intermediate Hives Verified 12/17/24 07:14 Penicillins Allergy Intermediate Hives Verified 12/17/24 06:50 Vital Signs Vital Signs - 24 hr 12/17/24 06:05 12/17/24 10:03 12/17/24 10:15 Temperature 98.2 F 97.7 F Pulse Rate 70 82 71 Respiratory Rate 16 20 20 Blood Pressure 134/62 118/85 127/71 Pulse Oximetry 100 99 100 Oxygen Delivery Room Air Simple Face Mask Simple Face Mask Oxygen Flow Rate 10 10 12/17/24 10:30 12/17/24 10:45 12/17/24 11:00 Temperature Pulse Rate 83 82 67 Respiratory Rate 18 18 15 Blood Pressure 93/32 L 118/69 107/46 L Pulse Oximetry 97 95 100 Oxygen Delivery Room Air Nasal Cannula Nasal Cannula Oxygen Flow Rate 2 2 12/17/24 11:15 12/17/24 11:30 12/17/24 12:00 Temperature 97.4 F L Pulse Rate 84 82 63 Respiratory Rate 17 14 16 Blood Pressure 135/62 127/67 119/61 Pulse Oximetry 100 100 100 Oxygen Delivery Nasal Cannula Nasal Cannula Oxygen Flow Rate 2 2 12/17/24 12:15 12/17/24 12:22 Temperature 97.4 F L 97.5 F L Pulse Rate 61 67 Respiratory Rate 16 16 Blood Pressure 112/54 L 109/47 L Pulse Oximetry 99 98 Oxygen Delivery Oxygen Flow Rate Exam Narrative: General: In no acute distress, well nourished Head: atraumatic, no encephalopathy Eyes: PERRLA, sclera clear ENT: moist mucous membranes, nasal passages clear Neck: supple, no JVD, no adenopathy, trachea midline Cardiac: Normal S1 and S2. RRR, No murmur, gallops or friction rubs, peripheral pulses intact. Respiratory: Lungs clear to auscultation, no adventitious lung sounds, currently on room air Gastrointestinal: soft, non-distended, non-tender, normoactive bowel sounds. Reports some nausea immediately post op : voiding without difficulty. Extremities: moves all extremities well, no edema Skin: right hip incision with OR dressing in place Neuro: Alert and oriented x4, cranial nerves intact, no neuro deficits. Psych: normal mood, normal affect, interactive Quality VTE Prophylaxis VTE prophylaxis: mechanical ordered Hospitalist MIPS Advance Care Plan I have confirmed that the patient's Advanced Care Plan is present, code status is documented, or surrogate decision maker is listed in patient medical record.: Yes Medication Reconciliation I have utilized all available resources to obtain, update and review the patients current medications (includes all prescriptions, OTC, herbals, cannabis, and nutritional supplements).: Yes
[2024-12-17] MEDS: oxyCODONE/ACETAMINOPHEN (*CRX) 5-325 MG TABLET 1 TABLET PO (18:12)
[2024-12-17] MEDS: FAMOTIDINE 20 MG TABLET PO (20:08)
[2024-12-18 00:58] VITALS: BP 116/52; PULSE 58; RESP 16; O2SAT 91
[2024-12-18] MEDS: oxyCODONE/ACETAMINOPHEN (*CRX) 10-325 MG TABLET 1 TAB PO (03:28)
[2024-12-18] MEDS: ceFAZolin 2 GM/D5W 50 ML 2 GM/50 ML BAG IVPB (03:29)
[2024-12-18 04:52] LABS: Basophils Percent Auto 0.1 % (0.2-1.2); Hematocrit 34.1 % (37.0-47.0); Hemoglobin 10.7 g/dL (12.0-15.0); Immature Granulocyte Absolute 0.04 K/mm3 (0.00-0.031); Immature Granulocyte Percent A 0.4 % (0-0.5); Mean Corpuscular HGB Conc 31.4 g/dl (32-36); Mean Corpuscular Hemoglobin 30.5 pg (26-34); Mean Corpuscular Volume 97.2 fl (80-100); Mean Platelet Volume 10.8 fl (7.4-10.4); Monocytes Absolute Auto 0.8 K/mm3 (0.1-0.6); Monocytes Percent Auto 8.4 % (2.6-8.5); Neutrophils Absolute Auto 7.3 K/mm3 (1.3-6.7); Neutrophils Percent Auto 81.1 % (45.5-73.1); Platelet Count Result 211 k/mm3 (150-375); Red Blood Count 3.51 M/mm3 (4.2-5.4); Red Cell Distribution Width 13.9 % (11.5-14.5)
[2024-12-18 05:00] LABS: Anion Gap 9 mmol/L (4-12); Blood Urea Nitrogen 12 mg/dL (7-17); Calcium 9.1 mg/dL (8.4-10.2); Carbon Dioxide 24 mmol/L (22-30); Chloride 102 mmol/L (98-107); Estimated CRCL calculation 79 ml/min; Estimated Glomerular Filt Rate > 60; Glucose 144 mg/dL (65-110); Potassium 4.3 mmol/L (3.4-5.0); Sodium 135 mmol/L (137-145)
[2024-12-18 05:22] VITALS: BP 101/43; PULSE 63; RESP 16; TEMP 37.1; O2SAT 95
--- NOTE | 2024-12-18 07:22 | PM.PNORT ---
Progress Note: A&P Assessment and Plan (1) History of right hip replacement: Code(s): Z96.641 - Presence of right artificial hip joint Status: Acute Assessment and Plan: Patient underwent right total hip arthroplasty for osteoarthritis. She has done well postoperatively and can be dismissed at this time. Touch weight-bearing for now. Anticipate follow-up 2 weeks for sutures out. We will get x-rays in 6 weeks. If she has any changes or problems she will call. She is dismissed to home. Subjective Subjective Date/Time Seen: 12/18/24 07:22 Post Op day: 1 Principal diagnosis: Right total hip arthroplasty for osteoarthritis Review of Systems Musculoskeletal: Musculoskeletal: Reports arthralgias, Reports joint swelling and Reports stiffness Neurologic: Reports abnormal gait Exam Narrative: patient is neurologically intact. She is wiggling her toes. Her dressing is dry and intact. The wound looks clean. She is able ambulate with a walker. pain is tolerable. Objective Data Vital Signs Vital Signs: Vital Signs - 24 hr 12/17/24 10:03 12/17/24 10:15 12/17/24 10:30 Temperature 97.7 F Pulse Rate 82 71 83 Respiratory Rate 20 20 18 Blood Pressure 118/85 127/71 93/32 L Pulse Oximetry 99 100 97 Oxygen Delivery Simple Face Mask Simple Face Mask Room Air Oxygen Flow Rate 10 10 12/17/24 10:45 12/17/24 11:00 12/17/24 11:15 Temperature Pulse Rate 82 67 84 Respiratory Rate 18 15 17 Blood Pressure 118/69 107/46 L 135/62 Pulse Oximetry 95 100 100 Oxygen Delivery Nasal Cannula Nasal Cannula Nasal Cannula Oxygen Flow Rate 2 2 2 12/17/24 11:30 12/17/24 12:00 12/17/24 12:15 Temperature 97.4 F L 97.4 F L Pulse Rate 82 63 61 Respiratory Rate 14 16 16 Blood Pressure 127/67 119/61 112/54 L Pulse Oximetry 100 100 99 Oxygen Delivery Nasal Cannula Oxygen Flow Rate 2 12/17/24 12:22 12/17/24 13:45 12/17/24 14:14 Temperature 97.5 F L 97.5 F L Pulse Rate 67 58 L Respiratory Rate 16 16 Blood Pressure 109/47 L 105/54 L Pulse Oximetry 98 98 Oxygen Delivery Room Air Oxygen Flow Rate 12/17/24 17:05 12/17/24 17:22 12/17/24 20:00 Temperature 97.2 F L Pulse Rate 52 L Respiratory Rate 16 Blood Pressure 136/59 L Pulse Oximetry 98 Oxygen Delivery Room Air Room Air Oxygen Flow Rate 12/17/24 20:04 12/17/24 20:07 12/17/24 21:22 Temperature Pulse Rate 52 L 52 L 58 L Respiratory Rate 16 16 Blood Pressure 113/66 116/52 L Pulse Oximetry 98 91 Oxygen Delivery Oxygen Flow Rate 12/18/24 00:58 Temperature Pulse Rate 58 L Respiratory Rate 16 Blood Pressure 116/52 L Pulse Oximetry 91 Oxygen Delivery Oxygen Flow Rate Intake/Output Intake/Output: Intake & Output 12/15/24 12/16/24 12/17/24 12/18/24 23:59 23:59 23:59 23:59 Intake Total 1290 240 Output Total 200 Balance 1290 40 Meds/Results Medications: Active Medications Generic Name Dose Route Start Last Admin Trade Name Freq PRN Reason Stop Dose Admin Apixaban 5 mg 12/18/24 09:00 Apixaban 5 Mg Tablet PO Q12H [facility] Celecoxib 200 mg 12/18/24 09:00 Celecoxib 200 Mg Capsule PO DAILY KAREN Dronedarone 400 mg 12/17/24 21:00 12/17/24 20:07 Dronedarone Hcl 400 Mg Tablet PO Not Given Q12HR [facility] Famotidine 20 mg 12/17/24 21:00 12/17/24 20:08 Famotidine 20 Mg Tablet PO 20 mg Q12HR KAREN Administration Hydromorphone HCl 1 mg 12/17/24 11:45 Hydromorphone Hcl Inj (*Crx) 2 Mg/Ml Vial IV PUSH Q2H PRN Breakthrough Pain Rated 7-10 or NPO Hydromorphone HCl 0.5 mg 12/17/24 11:46 Hydromorphone Hcl Inj (*Crx) 2 Mg/Ml Vial IV PUSH Q2H PRN Breakthrough Pain Rated 4-6 or NPO Ibuprofen 800 mg in 200 mls @ 400 mls/hr 12/17/24 11:37 Caldolor 800 Mg/200 Ml IVPB Q6H PRN Breakthrough Pain Rated 1-3 or NPO Naloxone HCl 0.1 mg 12/17/24 11:37 Naloxone Hcl 0.4 Mg/Ml Vial IV PUSH Q2M PRN Opiate Reversal Ondansetron HCl 4 mg 12/17/24 11:37 12/17/24 14:33 Ondansetron Inj 4 Mg/2 Ml Vial IV PUSH 4 mg Q4H PRN Administration Nausea And Vomiting Oxycodone/Acetaminophen 1 tablet 12/17/24 11:37 12/17/24 18:12 Oxycodone/Acetaminophen (*Crx) 5-325 Mg Tablet PO 1 tablet Q4H PRN Administration Pain Rated 4-6 Oxycodone/Acetaminophen 1 tab 12/17/24 11:37 12/18/24 03:28 Oxycodone/Acetaminophen (*Crx) 10-325 Mg Tablet PO 1 tab Q6H PRN Administration Pain Rated 7-10 Polyethylene Glycol 17 gm 12/18/24 09:00 Polyethylene Glycol 3350 17 Gm Powd.Pack PO QAM KAREN Senna/Docusate Sodium 2 tab 12/17/24 17:00 12/17/24 17:46 Senna/Docusate Sodium Tablet PO Not Given BID KAREN Torsemide 10 mg 12/18/24 09:00 Torsemide 10 Mg Tablet PO DAILY KAREN Tramadol HCl 50 mg 12/17/24 11:37 Tramadol Hcl (*Crx) 50 Mg Tablet PO Q4H PRN Pain Rated 1-3 Radiology Results: ITS Impressions Intraoperative X-Ray 12/17/24 12:03 IMPRESSION: 1. Expected appearance during right total hip arthroplasty. Labs Labs: Laboratory Results - last 24 hr 12/18/24 03:55 WBC 9.0 RBC 3.51 L Hgb 10.7 L Hct 34.1 L MCV 97.2 MCH 30.5 MCHC 31.4 L RDW 13.9 Plt Count 211 MPV 10.8 H Immature Gran % (Auto) 0.4 Neut % (Auto) 81.1 H Lymph % (Auto) 10.0 L [place] % (Auto) 8.4 Eos % (Auto) 0.0 Baso % (Auto) 0.1 L Lymph # (Auto) 0.90 [place] # (Auto) 0.8 H Eos # (Auto) 0.0 Baso # (Auto) 0.0 Abs Immat Gran (auto) 0.04 H Absolute Neuts (auto) 7.3 H Absolute Nucleated RBC 0.000 Nucleated RBC % 0.0 Sodium 135 L Potassium 4.3 Chloride 102 Carbon Dioxide 24 Anion Gap 9 BUN 12 Creatinine 0.73 Estim Creat Clear Calc 79 Estimated GFR > 60 Glucose 144 H Calcium 9.1
[2024-12-18] MEDS: oxyCODONE/ACETAMINOPHEN (*CRX) 5-325 MG TABLET 1 TABLET PO (07:44)
--- NOTE | 2024-12-18 07:45 | PCOTNOTE ---
The patient treatment was not able to be completed due to pain. RN present and providing medication. Will plan to continue treatment per plan of care.
[2024-12-18 08:53] VITALS: O2SAT 97
[2024-12-18 09:03] VITALS: PULSE 63
[2024-12-18] MEDS: APIXABAN 5 MG TABLET PO (09:03)
[2024-12-18] MEDS: CELECOXIB 200 MG CAPSULE PO (09:03)
[2024-12-18] MEDS: DRONEDARONE HCL 400 MG TABLET PO (09:03)
[2024-12-18] MEDS: FAMOTIDINE 20 MG TABLET PO (09:04)
[2024-12-18 09:22] VITALS: BP 108/48; PULSE 59; RESP 18; TEMP 36.9; O2SAT 99
[2024-12-18] MEDS: traMADol HCL (*CRX) 50 MG TABLET PO (11:03)
== END 2024-12-18 12:00 | disposition home or self-care (01) ==
LOC: ANHSURGERY 05:53 → ANH2MED 11:39
PROVIDERS: Visit Provider Orthopaedic Surgery
PROC: (CPT 27130; principal; 2024-12-17 07:30)
DX: M16.11 Unilateral primary osteoarthritis, right hip (principal); E66.9 Obesity, unspecified; Z68.34 Body mass index [BMI] 34.0-34.9, adult
CPT/HCPCS: 27130; 36415; 80048; 85025; 97110; 97116; 97161; 97165; 97530; 97535; 99199; A9270; C1776; J0690; J1100; J1171; J1630; J2003; J2250; J2405; J2704; J3010; J3370; J7030; J7120